=== PATIENT | male | born 1960 | race Caucasian/White ===

== ENCOUNTER → 2019-01-14 09:26 | Outpatient (CLI) | payer OTHER, SELFPAY ==
--- NOTE | 2019-01-14 09:32 | RAD_ITS ---
STUDY: X-RAY - PARANASAL SINUSES REASON FOR EXAM: Male, 58 years old. Head congestion, pressure TECHNIQUE: 3 view(s) of the paranasal sinuses were obtained. COMPARISON: None. FINDINGS: Normal visualized frontal, ethmoidal and sphenoid sinuses. Opacification of the left maxillary sinus, air-fluid level within the right maxillary sinus Normal visualized facial bones. The soft tissue structures are unremarkable. RAD/Sinuses min 3 Views IMPRESSION: Bilateral maxillary sinusitis Electronically Signed: Melquiades Felix MD at 8:53 EST , Service support ,
== END ==
PROVIDERS: Family Provider Family Medicine; PCP Family Medicine; Referring Provider Family Medicine; Visit Provider Family Medicine
DX: J32.0 Chronic maxillary sinusitis (principal)
CPT/HCPCS: 70220

== ENCOUNTER → 2019-01-25 16:57 | Outpatient (CLI) | payer OTHER, SELFPAY ==
[2019-01-25 17:36] LABS: Hematocrit 48.5 % (40-54); Hemoglobin 15.9 g/dL (13.0-16.5); Mean Corp Hgb Conc 32.8 g/dL (32-36); Mean Corpuscular Hgb 30.8 pg (27.0-32.0); Mean Platelet Vol. 9.3 fl (6.2-12.0); Platelet Count 187 K/mm3 (150-450); RBC Distribution Width CV 13.4 % (11.6-14.6); RBC Distribution Width SD 46.7 fl (35.1-43.9); Red Blood Count 5.16 M/mm3 (4.6-6.2); White Blood Count 5.9 K/mm3 (4.4-11.0)
[2019-01-25 18:04] LABS: Anion Gap 6 (5-15); BUN 26 mg/dL (7-18); BUN/Creat Ratio 18.8 RATIO (10-20); Calcium,Total 8.6 mg/dL (8.5-10.1); Chloride 106 mmol/L (98-107); Creatinine, Serum 1.38 mg/dL (0.70-1.30); EST Glomerular Filtration Rate 57 mL/min (>60); Est Glom Filt Rate - Afr Amer 68 mL/min (>60); Glucose 94 mg/dL (74-106); Potassium 4.3 mmol/L (3.5-5.1); Sodium Level 138 mmol/L (136-145)
== END ==
PROVIDERS: Family Provider Family Medicine; PCP Family Medicine; Referring Provider Family Medicine; Visit Provider Family Medicine
DX: Z01.818 Encounter for other preprocedural examination (principal)
CPT/HCPCS: 36415; 80048; 85027

== ENCOUNTER 2019-03-02 01:18 | Emergency (ER) | payer OTHER, SELFPAY ==
[2019-03-02 01:19] VITALS: BP 136/82; PULSE 92; RESP 18; TEMP 36.8; O2SAT 96; BMI 26.9
[2019-03-02 01:23] VITALS: BP 136/82; PULSE 92; RESP 18; TEMP 36.8; O2SAT 96
--- NOTE | 2019-03-02 01:48 | RAD_ITS ---
STUDY: X-RAY CHEST REASON FOR EXAM: Male, 58 years old. COUGH THAT JUST STARTED TONIGHT TECHNIQUE: PA and lateral views of the chest. COMPARISON: None. FINDINGS: There is minimal right lower lobe scarring versus atelectasis. Remainder of the lungs are clear and expanded. There is no demonstrated pleural abnormality. Normal size heart. Normal mediastinum and bernadette. Normal visualized pulmonary arteries. Normal visualized aortic arch and descending thoracic aorta. Normal visualized thoracic spine. Normal visualized ribs, clavicles, and shoulders. There is no demonstrated abnormality of the visualized soft tissue structures of the upper abdomen. RAD/Chest PA and Lateral IMPRESSION: Minimal right lower lobe scarring versus atelectasis, otherwise no acute cardiopulmonary disease. Electronically Signed: Olivia Vidal MD at 3:35 EST , Service support ,
--- NOTE | 2019-03-02 01:50 | ED.DCSUM_ITS ---
History of Present Illness Chief Complaint: Cold Sx Informant: Patient Onset: Days Associated Symptoms: Clear sputum, Cough, Post-nasal drainage. Negative for: Fever, Sore throat Chest Pain: None Narrative: Patient is a 58-year-old male with no significant past medical history presenting with cough. Patient states that at past 8 months he has been dealing with nasal congestion and has been on multiple courses of antibiotics and steroids. He is actually scheduled to see ENT tomorrow morning. Throughout this he is also had intermittent episodes of coughing. Tonight he had a particularly severe episode where he felt he could not catch his breath with all the coughing. He also felt like he was wheezing. He denies any history of tobacco use or COPD. He denies any associated fever, chills, myalgias, abdomin al pain, chest pain or sore throat. He notes intermittently he does have drainage in the back of his nose and his cough is sometimes worse at night. He denies any swelling of his extremities. Past Medical History - Allergies and Home Meds Allergies/Adverse Reactions: Allergies No Known Allergies Allergy (Verified 03/02/19 01:22) Primary Care Physician: Franco Beltrán MD [Primary Care Provider] - Past Medical History: None Surgical History: noncontributory Lives: Spouse/ Significant Other Smoking Status: Never smoker Review of Systems General: Denies: Chills, Fever, Sweats ENT: Reports: - - Nasal congestion?chronic. Denies: Bilateral ear pain, Rhinorrhea, Sore throat Cardiovascular: Denies: Chest pain, Palpitations Respiratory: Reports: Dyspnea, Cough, Sputum, - - Wheezing. Denies: Dyspnea on exertion Gastrointestinal: Denies: Abdominal pain, Nausea, Vomiting, Diarrhea, Melena, Hematochezia Genitourinary: Denies: Dysuria, Hematuria, Frequency Skin: Denies: Rash Neurological: Denies: Headache, Weakness, Numbness Physical Exam Vital Signs/Narrative: Vital Signs Temp Pulse Resp BP Pulse Ox 03/02/19 01:23 98.2 F 92 18 136/82 H 96 03/02/19 01:19 98.2 F 92 18 136/82 H 96 Inital Vital Signs reviewed: Yes General: Well nourished, Well developed Head: Normocephalic, Atraumatic Eyes: Perrl, EOMI ENT: No rhinorrhea, TM's clear, - - Patient is a very nasally voice. Mild erythema of the oropharynx, no edema or exudate present. Negative for: Rhinorrhea Neck: Supple, Nontender Cardiovascular: Regular rate, Regular rhythm, No murmurs Respiratory: No distress, No Stridor, Chest nontender, Wheezing - Mild, expiratory, bilateral upper lungs. Negative for: Diminished, Decreased Air Movement, Retractions Abdomen: Soft, Nontender, Nondistended, Normal bowel sounds Back: Nontender, Normal Inspection Extremities: Nontender, No edema Skin: Normal color, No rash Neurological: Alert, Oriented x3, Cranial nerves II-XII grossly intact, Normal Strength, Normal Sensation Psychological: Normal affect Diagnostic/Tx/Re-eval Chest X-Ray - ED: 2 View, Read by ED Physician, Read by Radiologist, No Acute Di sease Treatments: Albuterol - Medical Decision Making Patient is evaluated for coughing fits and wheezing. He otherwise is well- appearing. He is afebrile with normal vital signs. Patient does have wheezing on exam. He is given a DuoNeb and has improvement of his breathing as well as his wheezing. X-ray does not show any acute infiltrate or pneumothorax. Patient is following up tomorrow with ENT for his chronic congestion. Patient will be discharged home with an inhaler to use. Is possible he has some reactive airway with a cough variant. At this time I do not think further lab work is indicated. Patient does not have associated chest pain I do not think this is an ACS equivalent. I am not concerned for PE. Patient is counseled on signs and symptoms requiring return to the emergency room. Patient verbalizes agreement and understand this plan. Patient discharged home in stable and improved condition. ED Disposition - Plan for ED Patient: Disposition: Home or Assisted Living Diagnosis: Cough, Wheezing Instructions: BRONCHITIS with Wheezing (Adult) Referrals: Franco Beltrán MD [Primary Care Provider] - Additional Instructions: Use the inhaler 1 to 2 puffs every 4-6 hours as needed for coughing or wheezing. There is no signs of pneumonia on your chest x-ray. Is possible you have a viral infection that is causing the coughing and wheezing. Please follow-up with your ENT doctor as scheduled in the morning as well as your primary care doctor. Return to the emergency room with any worsening symptoms.
[2019-03-02 01:54] VITALS: PULSE 77; RESP 16
[2019-03-02] MEDS: Ipratropium/Albuterol Sulfate 3 ML AMPUL.NEB INHALATION (01:54)
[2019-03-02 02:22] VITALS: BP 135/80; PULSE 92; RESP 17; TEMP 37; O2SAT 97
[2019-03-02 04:05] VITALS: BP 140/80; PULSE 90; RESP 18; O2SAT 96
== END 2019-03-02 04:06 | disposition home or self-care (01) ==
PROVIDERS: Emergency Provider Emergency Medicine; PCP Family Medicine
DX: R06.2 Wheezing (principal); R05 Cough
CPT/HCPCS: 71046; 94640; 99282

== ENCOUNTER 2019-03-12 06:17 | Observation (INO) | payer OTHER, SELFPAY ==
[2019-03-12] VITALS (15 sets, daily range): BP systolic 102–142; BP diastolic 61–88; PULSE 78–108; RESP 11–24; TEMP 36.6–37.5; O2SAT 88–98; BMI 26.5; BMI 26.4
--- NOTE | 2019-03-12 06:24 | EKG12_ITS ---
Test Reason : Blood Pressure : / mmHG Vent. Rate : 107 BPM Atrial Rate : 107 BPM P-R Int : 120 ms QRS Dur : 080 ms QT Int : 340 ms P-R-T Axes : 071 -13 060 degrees QTc Int : 453 ms Sinus tachycardia Otherwise normal ECG Confirmed by SHARAN ACEVES, LIZET ([id number]), desk editor RAFA DUBON ([id number]) on 03/15/2019 8:27:57 AM Referred By: Marium Tinajero Confirmed By:LIZET TSANG MD
--- NOTE | 2019-03-12 06:24 | RAD_ITS ---
STUDY: X-RAY CHEST REASON FOR EXAM: Male, 58 years old patient with cough, congestion and shortness of breath. TECHNIQUE: Single AP portable view of the chest. COMPARISON: Chest radiograph dated March 02, 2019. FINDINGS: Cardiac monitoring leads are present. The lungs are clear and hyperexpanded. There is no demonstrated pleural abnormality. Normal size heart. The mediastinum has a normal appearance. The hilar areas are both prominent in appearance. There is prominence of the pulmonary hilar arteries without peripheral pulmonary vascular congestion. Normal visualized aortic arch and descending thoracic aorta. Normal visualized thoracic spine. Normal visualized ribs, clavicles, and shoulders. There is no demonstrated abnormality of the visualized soft tissue structures of the upper abdomen. RAD/Chest 1 View (Portable) IMPRESSION: Prominence of bilateral pulmonary arteries and/or hilar areas. Differential considerations include lymphadenopathy. Electronically Signed: Christina Chavez MD at 7:09 EST , Service support ,
[2019-03-12] MEDS: 0.9% Normal Saline 1,000 ML 999 ML IV (06:33)
[2019-03-12] MEDS: Ipratropium/Albuterol Sulfate 3 ML AMPUL.NEB INHALATION ×3 (06:33→19:08)
[2019-03-12] MEDS: MethylPREDNISolone 125 MG/2 ML Vial IV (06:33)
[2019-03-12 06:39] LABS: Absolute Lymphocyte Count 2.11 X10^3/uL (0.83-4.51); Absolute Neutrophil Count 2.9 X10^3/uL (2.0-7.7); Basophil# 0.05 X10^3/uL; Basophil% 0.9 % (0-1); Eosinophil# 0.01 X10^3/uL; Eosinophils% 0.2 % (0-5); Hematocrit 49.8 % (40-54); Hemoglobin 16.9 g/dL (13.0-16.5); Lymphocyte # 2.11 X10^3/ul (4.0); Lymphocyte % 37.7 % (19-41); Mean Corp Hgb Conc 33.9 g/dL (32-36); Mean Corpuscular Hgb 31.6 pg (27.0-32.0); Mean Corpuscular Volume 93.1 fL (80-94); Mean Platelet Vol. 8.8 fl (6.2-12.0); Monocyte# 0.47 X10^3/uL; Monocyte% 8.4 % (0-10); NRBC Flagged by Analyzer 0 % (0-5); Neutrophil # 2.93 X10^3/uL (2.7-7.7); Neutrophil % 52.3 % (47-70); Platelet Count 229 K/mm3 (150-450); RBC Distribution Width CV 13.2 % (11.6-14.6); RBC Distribution Width SD 45.7 fl (35.1-43.9); Red Blood Count 5.35 M/mm3 (4.6-6.2); White Blood Count 5.6 K/mm3 (4.4-11.0)
[2019-03-12 06:52] LABS: Anion Gap 6 (5-15); BUN 18 mg/dL (7-18); BUN/Creat Ratio 13.5 RATIO (10-20); Calcium,Total 8.9 mg/dL (8.5-10.1); Chloride 107 mmol/L (98-107); Creatinine, Serum 1.33 mg/dL (0.70-1.30); EST Glomerular Filtration Rate 59 mL/min (>60); Est Glom Filt Rate - Afr Amer 71 mL/min (>60); Estimated Creatinine Clearance 66.05 ml/min; Glucose 123 mg/dL (74-106); Potassium 4.1 mmol/L (3.5-5.1); Sodium Level 141 mmol/L (136-145)
[2019-03-12 07:10] LABS: D-Dimer Quantitative (DVT/PE) 0.94 FEU/ug/m (0.27-0.49)
--- NOTE | 2019-03-12 07:17 | CT_ITS ---
STUDY: CTA CHEST REASON FOR EXAM: Male, 58 years old. SOB, COUGH INTERMITTENT X 8 MONTHS, ELEV D DIMER RADIATION DOSAGE (If Supplied By Facility): CTDIvol = ( 10.63 ) mGy, DLP = ( 428.5 ) mGycm TECHNIQUE: The examination was performed with the intravenous administration of IV 100mL Isovue-370. Post-processing of the angiographic images was performed, with multiplanar reformation and 3D reconstruction. Individualized dose optimization techniques were used for this CT. COMPARISON: March 12, 2019 chest x-ray FINDINGS: Normal enhancement of the main pulmonary artery and right and left pulmonary arteries. Normal enhancement of the bilateral peripheral pulmonary arteries. There is no demonstrated pulmonary embolism. Normal thoracic aorta and visualized great vessels. There is no demonstrated aortic dissection. Normal heart and pericardium. A few nonspecific subcentimeter mediastinal some centimeter lymph nodes. There is visualized. Mild fairly symmetric bilateral lymphadenopathy in the bernadette. Normal visualized trachea there is a thickened appearance of several areas of the bronchi including peripheral peribronchial thickening. The lungs are well expanded. Within the right upper lobe there are multiple small well-circumscribed nodular densities. Within the left lower lobe there is a focus of groundglass opacity and mild peribronchial thickening. There are a few distal right mediolateral pulmonary nodular densities. This may represent some element of mucus plugging. There are a few scattered areas groundglass opacity air trapping. Normal pleura. Normal chest wall structures. There are degenerative changes of thoracic spine. There is a 2.1 cm cystic structure within the right hepatic lobe near the caudate. There is a peripheral low attenuating cystic structure measuring 7.3 mm. There is a small hiatal hernia. CT/CTA Chest W/WO Contrast IMPRESSION: The visualized pulmonary embolism. Findings are suspicious for atypical infiltrates. Peribronchial thickening inflammatory change a few scattered nodules. Scattered nodular densities with a cluster in the right upper lobe. Consider atypical infiltrates, rhonchi versus respiratory bronchiolitis in the appropriate clinical setting. If symptoms persist potentially follow-up high-resolution chest CT would be helpful. Incidental visualization of at least 2 cystic structures within the liver for which a follow-up ultrasound would be helpful to clarify. Electronically Signed: Lesli Clement MD at 8:47 EST Tel , Service support ,
--- NOTE | 2019-03-12 07:27 | ED.DCSUM_ITS ---
- ER Visit Summary Date of Service: 03/12/19 Chief Complaint: Shortness of breath History of Present Illness: The patient is a [address] Meadows. He reports that he has a cough that has been present since last week. He reports this really just an occasional cough. However, gets much worse at night when he lays down. Is productive of clear sputum without blood. He denies any fever or chills. Reports that he has severe shortness of breath at worst and moderate shortness of breath currently. Reports that it is worsened by coughing. It is minimally relieved by albuterol. Patient reports that he has substernal chest tightness that began approximately an hour ago. Is 3-10 in severity. He denies any fever or chills. No personal or family history of DVT. No recent travel. No ankle swelling or calf pain. Physical Examination: Vitals: 98.1, 142/88, 108, 19, 88% on room air which is hypoxic. General: Well-nourished and well-developed. Head: Normocephalic atraumatic. Neck: Supple, no lymphadenopathy. No JVD. Nontender. Cardiovascular: Tachycardic regular rhythm. No murmurs. Respiratory: Mild respiratory distress. Clear to auscultation bilaterally. Abdominal: Soft, nontender, nondistended, normal bowel sounds. No guarding, rebound, or peritoneal signs. Back: Nontender. Extremities: Nontender, no edema. Skin: Normal color, no rash. Neurologic: Alert and oriented ?3. Cranial nerves II through XII are intact. Normal strength and sensation. Psych: Normal affect. Test Results: EKG is sinus tach at [address] changes. CBC is marked for hemoglobin of 16.9. Chem-7's marked for creatinine 1.33 and glucose 123. Troponin is less than 0.015. D-dimer is positive. Lactic acid is 1.4. Clinical Impression(s) from Imaging Studies Chest X-Ray 03/12/19 06:24 IMPRESSION: Prominence of bilateral pulmonary arteries and/or hilar areas. Differential considerations include lymphadenopathy. Electronically Signed: Christina Chavez MD at 7:09 EST , Service support , Emergency Department Course and Treatment: Patient was given albuterol and Atrovent aerosols. He does report that he had some relief from this despite the fact that he was not wheezing and he has good air movement. He does not smoke. He was also given Solu-Medrol IV. However, on 4 L of O2 his pulse ox is still 92%. A CTA of the chest was ordered and is pending. Treatment Plan: Patient is going to require admission to the hospital. He will be discussed with the hospitalist and the CTA of the chest will be checked out to the incoming doctor. Disposition: Admitted in improved condition. Impression: 1. URI. 2. Hypoxia. This note was generated with [employer] software. It may contain incorrect words, spelling, and punctuation that were not noted in review of the chart prior to signing <Mauro Wells - Last Filed: 03/12/19 07:35> - ER Visit Summary Took over care of this patient. CT shows no pulmonary emboli, but atypical bilateral infiltrates were noted, this is likely causing his hypoxemia and symptoms. Given his hypoxemia, agree with admission. Dr. Tinajero aware. Impression: 1. Lower respiratory infection 2. Hypoxemia This note was generated with [employer] ([employer]) software. It may contain incorrect words, spelling, and punctuation that were not noted in review of the chart prior to signing <Juan Hodges - Last Filed: 03/12/19 10:10> ED Disposition <Mauro Wells - Last Filed: 03/12/19 07:35> <Juan Hodges - Last Filed: 03/12/19 10:10> - Plan for ED Patient: Disposition: Acute [employer] [employer]
[2019-03-12 07:28] LABS: Lactic Acid 1.4 mmol/L (0.4-1.9)
--- NOTE | 2019-03-12 08:55 | PCM.HP.STD ---
Problem List (1) Hypoxia Status: Acute (2) Atypical pneumonia Status: Acute (3) Renal insufficiency Status: Acute History of Present Illness Date of Admission: 03/12/19 Chief Complaint: Dyspnea, cough, hypoxia The patient is a 58 y/o M w/ no significant medical history aside ongoing history over the last several months of ongoing congestion, postnasal drip as well as minimally productive cough with PCP evaluations and several rounds of steroid tapers as well as antibiotic therapies, worsened over the last 4 weeks with no specific fevers or chills but some associated dyspnea, worse with exertion and ongoing mildly productive cough prompting eventual ED presentation. In the ED work-up included T 98.1, heart rate 92, BP 131/88, respiratory rate 12, initially noted to be 87 to 88% on room air while in the ED with improvement to 96% on 2 L nasal cannula, CBC with WBC 5.6, hemoglobin 16.9, platelet 229 without shift, d-dimer 0.94, BMP with BUN/creatinine 18/1.33 with no history of renal disease per discussion, glucose 123, lactic acid 1.4, troponin less than 0.015, chest x-ray with prominent bilateral pulmonary arteries and her hilar regions, follow-up CTPA with no visualized pulmonary emboli with findings suspicious for atypical infiltrates with peribronchial thickening inflammatory change and a few scattered nodules with scattered nodular densities clustered in the right upper lobe. In the ED patient administered normal saline, Solu-Medrol 125 mg IV x1, albuterol therapy. Given patient failed outpatient treatment occluding steroids and antibiotic therapy and noted hypoxia while in the ED admitted for further care and treatment. Past Medical History Allergies No Known Allergies Allergy (Verified 03/12/19 06:17) Home Medications: Ambulatory Orders Medication Instructions Recorded NK 03/02/19 Surgical History: noncontributory Psychiatric History: No pertinent psych hx Lives: Spouse/ Significant Other Smoking Status: Never smoker Tobacco Use: Non-smoker Alcohol: Occasional Drugs: None - *Family History Maternal History Items: Hypertension Paternal History Items: - - Patient notes father with a history of unclear blood disorder, associate with his but cannot give other information. Review of Systems Constitutional: Reports: Malaise, Weakness, Fatigue. Denies: Anorexia, Chills, Fever, Weight Change HEENT: Reports: Nasal Congestion, Sinus Congestion, Sinus Drainage. Denies: Head Aches Cardiovascular: Denies: Chest Pain, Chest Pressure, Chest Tightness, Light Headedness, Orthopnea, Palpitations, Syncope Respiratory: Reports: Cough, Shortness of Breath, Shortness of breath upon exertion, Sputum production - Very minimal sputum production.. Denies: Shortness of breath at rest, Wheezing Gastrointestinal: Denies: Abdominal Pain, Nausea, Vomiting Genitourinary: Denies: Dysuria Musculoskeletal: Denies: Joint Pain, Joint Tenderness Skin: Denies: Rash, Wounds Neurological: Denies: Numbness, Tingling, Focal weakness Psychiatric: Denies: Anxiety, Depression, Homicidal Ideations, Suicidal Ideations Hematologic/ Lymphatic: Denies: Easy Bruising, Easy Bleeding VTE Information - Inpt Only VTE Present on Admission: No VTE Mechan Device Prophylaxis: None VTE Pharm Prophylaxis ordered?: No Reason prophylaxis not ordered:: Treatment Not Indicated Patient Problems: Active and Suspected Problems Hypoxia (Acute) Atypical pneumonia (Acute) Renal insufficiency (Acute) Subjective: Seated upright in the medical surgical bed, fatigued appearance, currently transitioned to room air following interventions in the ED, no evidence of dyspnea. Objective: Physical Examination: General: awake, alert, oriented x 3 and cooperative, seated upright in the medical surgical bed, fatigued appearance but no acute distress, transition now to room air following ED interventions, no hypoxia currently. Skin: normal color, turgor, no icterus, cyanosis. HEENT: AT/NC, EOMI, PERRLA, minimally dry MM, no obvious boggy nares, does have nasal polyps with ongoing ENT evaluation, no carotid bruits or JVD present. Lungs: Diminished breath sounds, greater bilateral bases, moderate effort, no evidence of distress, no obvious rales, rhonchi or wheezing currently. Heart: Regular rate and rhythm; no gallop, rub audible. Abdomen: soft, NTTP, ND, normal BS, no HSM. Extremities: no cyanosis, clubbing, or edema. Neurological: patient awake, alert, oriented x 3; cognitive function intact; pupils equally reactive to light and accomodation; cranial nerves II-XII grossly normal, moving all 4 extremities, no focal deficits, strength mildly global decrease secondary to acute presentation and recent complaints. Psychiatric: affect appears mildly fatigued otherwise normal, no acute evidence of depressive or anxiety feelings. - Physical Exam Vitals/I&O's: Vital Signs Temp Pulse Resp BP Pulse Ox 98.1 F 92 12 131/88 H 96 03/12/19 07:57 03/12/19 07:57 03/12/19 07:57 03/12/19 07:57 03/12/19 07:57 Oxygen Flow Rate (L/min) 2 Oxygen Delivery Method Nasal Cannula Weight: 190 lb 4.143 oz Body Mass Index (BMI) 26.5 Laboratory Results 03/12/19 06:25: WBC 5.6, RBC 5.35, Hgb 16.9 H, Hct 49.8, MCV 93.1, MCH 31.6, MCHC 33.9, RDW Std Deviation 45.7 H, RDW Coeff of [place] 13.2, Plt Count 229, MPV 8.8, Immature Gran % (Auto) 0.500, Neut % (Auto) 52.3, Lymph % (Auto) 37.7, [place] % (Auto) 8.4, Eos % (Auto) 0.2, Baso % (Auto) 0.9, Absolute Neuts (auto) 2.9, Absolute Lymphs (auto) 2.11, Nucleated RBC % 0 03/12/19 06:25: Sodium 141, Potassium 4.1, Chloride 107, Carbon Dioxide 28.0, Anion Gap 6, BUN 18, Creatinine 1.33 H, Estim Creat Clear Calc 66.05, Est GFR (MDRD) Af Amer 71, Est GFR (MDRD) Non-Af 59 L, BUN/Creatinine Ratio 13.5, Glucose 123 H, Calcium 8.9, Troponin I < 0.015 03/12/19 06:25: D-Dimer Quant (PE/DVT) 0.94 H* 03/12/19 06:38: Lactic Acid 1.4 Assessment/Plan All Active Problems Hypoxia (Acute) Atypical pneumonia (Acute) Renal insufficiency (Acute) The patient is a 58 y/o M w/ no significant medical history aside ongoing history over the last several months of ongoing congestion, postnasal drip as well as minimally productive cough with PCP evaluations and several rounds of steroid tapers as well as antibiotic therapies, worsened over the last 4 weeks with no specific fevers or chills but some associated dyspnea, worse with exertion and ongoing mildly productive cough prompting eventual ED presentation. 1. Hypoxia with ? Atypical Pneumonia versus underlying Reactive Airway disease: Will admit to MS, maintain on oxygen with wean as tolerated to room air, continue ATC duonebs, PRN albuterol, maintained on IV Rocephin and Azithromycin, HOB, IS parameters w/ pending sputum cultures, respiratory viral panel, requested mycoplasma and chlamydia PCR for atypical assessment, urine antigens. A consider pulmonary evaluation to encourage quick transition to pulmonary office as likely will benefit from future pulmonary function testings. Patient notes already planned outpatient allergy testing to be initiated per ENT. 2. ? Chronic kidney disease stage III versus BOB versus renal insufficiency: Admission BUN/creatinine 18/1.33, unclear baseline, gently hydrating, repeat BMP in AM. 3. Hyperglycemia: Admission glucose 125, possibly stress response, also given recent steroids while in the ED, will repeat BMP in AM. 4. DVT prophylaxis: Low risk, encourage ambulation. Code Visit Inpatient E&M: 81250 Init Hosp L2
--- NOTE | 2019-03-12 10:32 | NURSING ---
uses reading glass.. cataracts done in both eyes right eye02/21/2019 and left eye 03/07/2019
[2019-03-12] MEDS: 0.9% Normal Saline 1,000 ML 125 ML IV ×2 (11:20→21:07)
[2019-03-12] MEDS: 0.9% Saline Lock 10 ML Syringe IV (11:27)
[2019-03-12] MEDS: Famotidine 20 MG Tablet PO (11:28)
[2019-03-13] VITALS (7 sets, daily range): BP systolic 118–124; BP diastolic 70–78; PULSE 66–88; RESP 16–18; TEMP 36.6–36.8; O2SAT 93–98
[2019-03-13] MEDS: BENZOCAINE/MENTHOL 1 LOZENGE MUCOUS MEM (01:04)
[2019-03-13] MEDS: Temazepam 15 MG Capsule PO (01:05)
[2019-03-13 06:49] LABS: Basophil# 0.03 X10^3/uL; Basophil% 0.3 % (0-1); Eosinophil# 0.01 X10^3/uL; Eosinophils% 0.1 % (0-5); Hematocrit 45.4 % (40-54); Hemoglobin 14.9 g/dL (13.0-16.5); Lymphocyte % 12.3 % (19-41); Mean Corp Hgb Conc 32.8 g/dL (32-36); Mean Corpuscular Hgb 30.8 pg (27.0-32.0); Mean Corpuscular Volume 93.8 fL (80-94); Mean Platelet Vol. 9.3 fl (6.2-12.0); Monocyte# 0.89 X10^3/uL; Monocyte% 7.8 % (0-10); NRBC Flagged by Analyzer 0 % (0-5); Neutrophil # 8.99 X10^3/uL (2.7-7.7); Neutrophil % 79.1 % (47-70); Platelet Count 199 K/mm3 (150-450); RBC Distribution Width CV 13.8 % (11.6-14.6); RBC Distribution Width SD 47.1 fl (35.1-43.9); Red Blood Count 4.84 M/mm3 (4.6-6.2); White Blood Count 11.4 K/mm3 (4.4-11.0)
[2019-03-13] MEDS: Ipratropium/Albuterol Sulfate 3 ML AMPUL.NEB INHALATION ×2 (07:00→11:10)
--- NOTE | 2019-03-13 07:20 | PCM.CONS.PUL ---
Reason for Consult Date of Consultation: 03/13/19 Reason for Consultation: Abnormal chest imaging History of Present Illness: The patient is a 58-year-old male, with a history as outlined below, who presented to the emergency department on March 12 with complaints of shortness of breath. The patient reports that beginning in the spring of last year, he began to experience chronic rhinorrhea, sinus drainage and postnasal drip. He has been treated a multitude of different times with different antimicrobials with only transient improvement in symptoms. Therefore, he was recently evaluated by Dr. Wyatt of ENT, who indicated to the patient that he had chronic sinusitis and nasal polyposis. He is currently scheduled to undergo a CT sinus on March 16. He is also being considered for surgery as well. The patient is a lifelong non-smoker, but did grow up in a smoking household. He was never diagnosed with asthma in childhood. He is currently employed working as a lawn and garden gas engine mechanic. The patient does currently keep 4 cats as pets in his home environment and also has chickens that he cares for on a daily basis. He reports no significant chest tightness or wheezing. He does report continued sinus drainage and postnasal drip symptoms. On presentation to the emergency department, the patient was noted to be afebrile and hemodynamically stable. He was initially documented to be 88% on room air. Laboratory evaluation revealed no evidence of a leukocytosis. Chemistry profile was elevated to 1.3. Lactate was within normal limits. A d-dimer was checked and found to be 0.94. Troponin was negative. Therefore, a CTA chest was obtained which revealed no evidence for pulmonary embolism. There were small nonspecific nodular densities along with peribronchial thickening. No focal infiltrate was present. The patient was initially treated with fluids, steroids and bronchodilators. He was admitted to the medical surgical floor for further management. Past Medical History Allergies No Known Allergies Allergy (Verified 03/12/19 06:17) Home Medications: Ambulatory Orders Medication Instructions Recorded NK 03/02/19 Surgical History: noncontributory Psychiatric History: No pertinent psych hx Lives: Spouse/ Significant Other Smoking Status: Never smoker Tobacco Use: Non-smoker Alcohol: Occasional Drugs: None - *Family History Maternal History Items: Hypertension Paternal History Items: - - Patient notes father with a history of unclear blood disorder, associate with his but cannot give other information. Review of Systems Constitutional: Denies: Chills, Fever Eyes: Denies: Blurred vision, Double vision HEENT: Denies: Head Aches, Sinus Congestion, Sinus Drainage Cardiovascular: Denies: Chest Tightness Respiratory: Reports: Cough, Shortness of Breath. Denies: Sputum production, Wheezing Gastrointestinal: Denies: Abdominal Pain, Nausea, Vomiting Genitourinary: Denies: Dysuria Musculoskeletal: Denies: Joint Pain, Joint Tenderness Skin: Denies: Rash, Wounds Neurological: Denies: Numbness, Tingling, Focal weakness Psychiatric: Denies: Anxiety, Depression, Homicidal Ideations, Suicidal Ideations Hematologic/ Lymphatic: Denies: Easy Bruising, Easy Bleeding Patient Problems: Active and Suspected Problems Hypoxia (Acute) Atypical pneumonia (Acute) Renal insufficiency (Acute) Objective: The patient's most recent lab work, culture data and imaging studies have all been personally reviewed. - Physical Exam Vitals/I&O's: Vital Signs Temp Pulse Resp BP Pulse Ox 97.8 F 88 18 124/78 H 94 03/13/19 01:30 03/13/19 01:30 03/13/19 01:30 03/13/19 01:30 03/13/19 01:30 Oxygen Flow Rate (L/min) 2 Oxygen Delivery Method Room Air Weight: 189 lb 6.033 oz Body Mass Index (BMI) 26.4 Intake and Output for Last 24 Hours 03/11/19 03/12/19 03/13/19 23:59 23:59 23:59 Intake Total 3852.91 / 3852.91 1000 / 1000 Balance 3852.91 / 3852.91 1000 / 1000 General: Alert, Oriented x3, Cooperative, No apparent distress HEENT: Atraumatic, PERRLA, Normocephalic Oral: No Gingival or Mucosal Lesions/ Ulcerations Neck: Supple, No Nodes, Trachea Midline Lungs: Normal air movement, No rhonchi, No wheeze, No rales Cardiovascular: Regular rate, Regular Rhythm, Normal S1, Normal S2 Abdomen: Bowel Sounds Present, Soft, Non Tender Extremities: No clubbing, No cyanosis, No edema Skin: No breakdown Musculoskeletal: No Tenderness to Palpation of Joints or Extremities, No Muscle Wasting Lymphatic: No Cervical, Supraclavicular, or Inguinal Adenopathy Neurological: Cranial nerves II-XII grossly intact, Neuro grossly intact Psych/Mental Status: Alert and oriented to time, place, person, mood and affect Labs (Last 48 Hours) 03/12/19 03/12/19 03/12/19 06:25 06:25 06:25 WBC 5.6 RBC 5.35 Hgb 16.9 H Hct 49.8 MCV 93.1 MCH 31.6 MCHC 33.9 RDW Std Deviation 45.7 H RDW Coeff of [place] 13.2 Plt Count 229 MPV 8.8 Immature Gran % (Auto) 0.500 Neut % (Auto) 52.3 Lymph % (Auto) 37.7 [place] % (Auto) 8.4 Eos % (Auto) 0.2 Baso % (Auto) 0.9 Absolute Neuts (auto) 2.9 Absolute Lymphs (auto) 2.11 Nucleated RBC % 0 D-Dimer Quant (PE/DVT) 0.94 H* Sodium 141 Potassium 4.1 Chloride 107 Carbon Dioxide 28.0 Anion Gap 6 BUN 18 Creatinine 1.33 H Estim Creat Clear Calc 66.05 Est GFR (MDRD) Af Amer 71 Est GFR (MDRD) Non-Af 59 L BUN/Creatinine Ratio 13.5 Glucose 123 H Lactic Acid Calcium 8.9 Total Bilirubin AST ALT Alkaline Phosphatase Troponin I < 0.015 Total Protein Albumin Mycoplasma pneumon IgG Mycoplasma pneumon IgM Miscellaneous Test 03/12/19 03/12/19 03/12/19 06:38 10:51 14:45 WBC RBC Hgb Hct MCV MCH MCHC RDW Std Deviation RDW Coeff of [place] Plt Count MPV Immature Gran % (Auto) Neut % (Auto) Lymph % (Auto) Pacific % (Auto) Eos % (Auto) Baso % (Auto) Absolute Neuts (auto) Absolute Lymphs (auto) Nucleated RBC % D-Dimer Quant (PE/DVT) Sodium Potassium Chloride Carbon Dioxide Anion Gap BUN Creatinine Estim Creat Clear Calc Est GFR (MDRD) Af Amer Est GFR (MDRD) Non-Af BUN/Creatinine Ratio Glucose Lactic Acid 1.4 Calcium Total Bilirubin AST ALT Alkaline Phosphatase Troponin I Total Protein Albumin Mycoplasma pneumon IgG Pending Mycoplasma pneumon IgM Pending Miscellaneous Test Pending 03/13/19 03/13/19 05:56 05:56 WBC 11.4 H RBC 4.84 Hgb 14.9 Hct 45.4 MCV 93.8 MCH 30.8 MCHC 32.8 RDW Std Deviation 47.1 H RDW Coeff of [place] 13.8 Plt Count 199 MPV 9.3 Immature Gran % (Auto) 0.400 Neut % (Auto) 79.1 H Lymph % (Auto) 12.3 L [place] % (Auto) 7.8 Eos % (Auto) 0.1 Baso % (Auto) 0.3 Absolute Neuts (auto) 9.0 H Absolute Lymphs (auto) 1.40 Nucleated RBC % 0 D-Dimer Quant (PE/DVT) Sodium Pending Potassium Pending Chloride Pending Carbon Dioxide Pending Anion Gap Pending BUN Pending Creatinine Pending Estim Creat Clear Calc Est GFR (MDRD) Af Amer Pending Est GFR (MDRD) Non-Af Pending BUN/Creatinine Ratio Pending Glucose Pending Lactic Acid Calcium Pending Total Bilirubin Pending AST Pending ALT Pending Alkaline Phosphatase Pending Troponin I Total Protein Pending Albumin Pending Mycoplasma pneumon IgG Mycoplasma pneumon IgM Miscellaneous Test Microbiology 03/12/19 10:45 Mucosa - Nasopharyngeal Respiratory Panel (PCR) - Final 03/12/19 11:50 Urine, Clean Catch Streptococcus pneumoniae Antigen (M - Final 03/12/19 11:50 Urine, Clean Catch Legionella Antigen - Final Clinical Impression(s) from Imaging Studies Chest X-Ray 03/12/19 06:24 IMPRESSION: Prominence of bilateral pulmonary arteries and/or hilar areas. Differential considerations include lymphadenopathy. Electronically Signed: Christina Chavez MD at 7:09 EST , Service support , Chest CTA 03/12/19 07:17 IMPRESSION: The visualized pulmonary embolism. Findings are suspicious for atypical infiltrates. Peribronchial thickening inflammatory change a few scattered nodules. Scattered nodular densities with a cluster in the right upper lobe. Consider atypical infiltrates, rhonchi versus respiratory bronchiolitis in the appropriate clinical setting. If symptoms persist potentially follow-up high-resolution chest CT would be helpful. Incidental visualization of at least 2 cystic structures within the liver for which a follow-up ultrasound would be helpful to clarify. Electronically Signed: Lesli Clement MD at 8:47 EST Tel , Service support , Current Medications Acetaminophen (Tylenol) 650 mg PO Q6H PRN PRN PRN Reason: Pain Score 1-3/Temp > 100.7 F Al Hydroxide/Mg Hydroxide (Mylanta Ii) 30 ml PO Q6H PRN PRN PRN Reason: Gastric Burning Albuterol Sulfate (Ventolin Aerosols) 2.5 mg INHALATION Q2H PRN PRN PRN Reason: Shortness of Breath/Wheezing Albuterol/Ipratropium (Duoneb) 3 ml INHALATION Q4HWA.RT [facility] Last Admin: 03/12/19 19:08 Dose: 3 ml Documented by: Famotidine (Pepcid) 20 mg PO BID [facility] Last Admin: 03/12/19 21:07 Dose: Not Given Documented by: Glucagon () 1 mg IM .X1 PRN PRN Reason: Hypoglycemia Guaifenesin (Robitussin) 20 ml PO Q4H PRN PRN PRN Reason: COUGH Hydralazine HCl (Apresoline Iv) 10 mg IV Q4H PRN PRN PRN Reason: SBP > 160 Azithromycin 500 mg/ Dextrose 255 mls @ 250 mls/hr IV Q24 [facility] Stop: 03/17/19 11:31 Last Infusion: 03/12/19 13:12 Dose: Infused Documented by: Ceftriaxone Sodium 2 gm/ (Sodium Chloride) 50 mls @ 100 mls/hr IV Q24 [facility] Stop: 03/19/19 11:01 Last Infusion: 03/12/19 11:54 Dose: Infused Documented by: Sodium Chloride () 250 mls @ 15 mls/hr IV .[id number] PRN PRN Reason: Saline Flush Sodium Chloride () 250 mls @ 15 mls/hr IV .[id number] PRN PRN Reason: Additional IVPB Infusion Dextrose (Dextrose 10%-Water) 250 mls @ 999 mls/hr IV .Q16M PRN; Protocol PRN Reason: HYPOGLYCEMIA Magnesium Hydroxide (Milk Of Magnesia) 30 ml PO DAILY PRN PRN PRN Reason: Constipation Morphine Sulfate () 2 mg IV Q3H PRN PRN PRN Reason: Pain Score 6-10/10 Ondansetron HCl (Zofran) 4 mg IV Q8H PRN PRN PRN Reason: NAUSEA/VOMITING Oxycodone HCl (Oxyir) 5 mg PO Q4H PRN PRN PRN Reason: Pain Score 4-5/10 Prochlorperazine Edisylate (Compazine Iv) 5 mg IV Q4H PRN PRN PRN Reason: Breakthrough nausea/vomiting Sodium Chloride () 10 - 40 ml IV UD PRN PRN Reason: SALINE FLUSH Last Admin: 03/12/19 11:27 Dose: 10 ml Documented by: Temazepam (Restoril) 15 mg PO QHS PRN PRN PRN Reason: INSOMNIA Last Admin: 03/13/19 01:05 Dose: 15 mg Documented by: Throat Lozenges (Cepacol Sore Throat Lozenge) 1 lozenge MUCOUS MEM Q2H PRN PRN PRN Reason: Sore throat or cough Last Admin: 03/13/19 01:04 Dose: 1 lozenge Documented by: Assessment/Plan All Active Problems Hypoxia (Acute) Atypical pneumonia (Acute) Renal insufficiency (Acute) RECOMMENDATIONS: 1. Perform walking oximetry study prior to consideration for discharge home. 2. Okay to discontinue antibiotics from my perspective. 3. Utilize intranasal steroid daily. 4. Outpatient CT sinus as scheduled. Follow-up with the ENT afterwards. 5. Outpatient pulmonary follow-up in 2 weeks. Will obtain PFTs and exhaled nitric oxide level. 6. Recommend allergy testing, if not completed by ENT. IMPRESSIONS: 1. Transient respiratory insufficiency/shortness of breath While the patient was initially admitted to the hospital with shortness of breath and transient respiratory insufficiency, this has improved. His CTA chest was largely unrevealing with small basilar nodular densities and peribronchial thickening. The patient's chronic symptoms appear to be secondary to sinus disease/nasal polyposis. He is currently being followed by ENT for the aforementioned issues. Given the findings on CTA chest, I cannot discount the possibility of potential small airways disease. Therefore, I would recommend that he follow-up in the pulmonary medicine clinic so that PFTs can be obtained. In addition, I would also plan to check an exhaled nitric oxide level and the patient and perform allergy testing, if not completed by ENT. 2. Chronic sinusitis/upper airway cough syndrome precipitated by postnasal drip The patient reports that he has a scheduled CT sinus on March 16 with follow-up with his ENT provider following. I will defer management to ENT accordingly. This note was generated with [employer] software. It may contain incorrect words, spelling, and punctuation that were not noted in checking the note before signing. Code Visit Inpatient E&M: 42199 Init Hosp L2
[2019-03-13 07:25] LABS: AST(SGOT) 25 U/L (15-37); Alanine Aminotransfer ALT/SGPT 32 U/L (16-61); Albumin, Serum 3.1 g/dL (3.2-5.0); Alkaline Phosphatase 54 U/L (45-117); Anion Gap 4 (5-15); BUN 17 mg/dL (7-18); BUN/Creat Ratio 13.9 RATIO (10-20); Calcium,Total 8.5 mg/dL (8.5-10.1); Chloride 113 mmol/L (98-107); Creatinine, Serum 1.22 mg/dL (0.70-1.30); EST Glomerular Filtration Rate 65 mL/min (>60); Est Glom Filt Rate - Afr Amer 79 mL/min (>60); Estimated Creatinine Clearance 72.01 ml/min; Globulin 3.2 g/dL (2.2-4.2); Glucose 103 mg/dL (74-106); Protein, Total 6.3 g/dL (6.4-8.2); Sodium Level 144 mmol/L (136-145)
--- NOTE | 2019-03-13 09:11 | DCINST_ITS ---
- Discharge Diagnoses Current Active Problems: Current Active and Chronic Problems 1. Transient Hypoxia with Abnormal CT Chest, Suspect secondary to Underlying Chronic Sinus Disease w/ nasal polyps w/ suspected allergic rhinitis and possible underlying Reactive Airway Disease 2. ? Chronic kidney disease stage II/III (Admission BUN/creatinine 18/1.33, unclear baseline, gently hydrated, repeat function Cr 1.22, suspect chronic component) 3. Hyperglycemia You will use the following diet at home:: Regular Your food should be the consistency of: Regular Your liquids should be the consistency of: Regular/Thin Discharge Activity: - - Advise only moderate activity until re-evaluation per ENT and Pulmonary medicine. May resume sexual activity in: No Restrictions Weight Bearing Status: Weight bearing as tolerated Call your doctor if you observe: Fever of 101 or Higher, Inability to urinate, Inability to have a bowel movement, Shortness of breath, Dizziness, Fainting spells, Chest pain, Uncontrolled pain Instructions: Understanding Nasal Allergies, Causes of Nasal Allergies, Nasal Allergies: Related Problems Additional Instructions: Currently we are suspicious for ongoing chronic sinusitis especially given nasal polyp history and recommend continued outpatient ENT evaluations with plan CT sinus in addition to allergy testing. Will then have you follow-up with pulmonary medicine to obtain pulmonary function testing to assess for reactive airway disease concurrently. Please continue to use the nasal steroid as recommended, scheduled specifically not only as needed and you may use the albuterol as needed for any shortness of breath complaints. If you have any concerns contact pulmonary medicine earlier for an earlier evaluation. Allergies/Adverse Reactions: Allergies No Known Allergies Allergy (Verified 03/12/19 06:17) Medications to take at Discharge Albuterol IH (ProAir) [Proair Hfa] 1 - 2 puff INHALATION Q4H PRN PRN #1 inhaler 03/13/19 Fluticasone 0.05% [Flonase Nasal [place]] 1 spray NASAL BID #1 bottle 03/13/19 Ketorolac Tromethamine [Acular LS] 1 drp 4X/DAY 03/13/19 Ofloxacin 0.3% [Floxin 0.3% Otic] 1 drp RIGHT EYE 4X/DAY 03/13/19 Prednisolone Acet 1% Eye Drop 1 drp RIGHT EYE 4X/DAY 03/13/19 The following prescriptions were given: Fluticasone 0.05% [Flonase Nasal [place]] 1 spray NASAL BID #1 bottle Transmission Status: Pending to [facility] Albuterol IH (ProAir) [Proair Hfa] 1 - 2 puff INHALATION Q4H PRN PRN #1 inhaler PRN Reason: dyspnea, wheezing Transmission Status: Pending to [facility] Primary Care Physician: Franco Beltrán MD [Primary Care Provider] - Please follow up with your Primary Care Physician in: Follow-up within 3-5 days. Test Results: Test results from this visit will be discussed in further detail at your follow- up appointment, if applicable. Please Follow Up With: Rahul Wyatt MD When: Follow-up as previously arranged. Please Follow Up With: Graciela Suh NP-C When: Follow-up in 2 weeks for pulmonary function testing and further assess ment. Proposed Discharge Date: 03/13/19
--- NOTE | 2019-03-13 09:19 | DS.PCM_ITS ---
Discharge Date and Diagnosis - Problem List Patient Problems: Active and Suspected Problems Hypoxia (Acute) Atypical pneumonia (Acute) Renal insufficiency (Acute) Date of Admission: 03/12/19 Date of Discharge: 03/13/19 - Primary Discharge Diagnosis Active and Suspected Problems 1. Transient Hypoxia with Abnormal CT Chest, Suspect secondary to Underlying Chronic Sinus Disease w/ nasal polyps w/ suspected allergic rhinitis and possible underlying Reactive Airway Disease 2. ? Chronic kidney disease stage II/III (Admission BUN/creatinine 18/1.33, unclear baseline, gently hydrated, repeat function Cr 1.22, suspect chronic component) 3. Hyperglycemia - Secondary Discharge Diagnosis 1. Underlying Chronic Sinus Disease w/ nasal polyps w/ suspected allergic rhinitis 2. ? Chronic kidney disease stage II/III Hospital Course and Treatment Dr. Patton Pulmonary medicine Operations: None Procedures: EKG Summary of Care Provided: The patient is a 58 y/o M w/ no significant medical history aside ongoing history over the last several months of ongoing congestion, postnasal drip as well as minimally productive cough with PCP evaluations and several rounds of steroid tapers as well as antibiotic therapies, worsened over the last 4 weeks with no specific fevers or chills but some associated dyspnea, worse with exertion and ongoing mildly productive cough prompting eventual ED presentation. In the ED work-up included T 98.1, heart rate 92, BP 131/88, respiratory rate 12, initially noted to be 87 to 88% on room air while in the ED with improvement to 96% on 2 L nasal cannula, CBC with WBC 5.6, hemoglobin 16.9, platelet 229 without shift, d-dimer 0.94, BMP with BUN/creatinine 18/1.33 with no history of renal disease per discussion, glucose 123, lactic acid 1.4, troponin less than 0.015, chest x-ray with prominent bilateral pulmonary arteries and her hilar regions, follow-up CTPA with no visualized pulmonary emboli with findings suspicious for atypical infiltrates with peribronchial thickening inflammatory change and a few scattered nodules with scattered nodular densities clustered in the right upper lobe. In the ED patient administered normal saline, Solu-Medrol 125 mg IV x1, albuterol therapy. Given patient failed outpatient treatment occluding steroids and antibiotic therapy and noted hypoxia while in the ED admitted for further care and treatment. Patient noted upcoming CT head and planned allergy testing initiated by ENT. The patient was admitted to OR, maintained on oxygen with wean as tolerated to room air quickly, continued ATC duonebs, PRN albuterol, maintained on IV Rocephin and Azithromycin pending further evaluation although afebrile, no marked WBC elevation or shift, HOB, IS parameters w/ negative respiratory viral panel, negative antigens, no sputum production during admission thus no sputum obtained, requested mycoplasma and chlamydia PCR for atypical assessment which were pending upon discharge but low suspicion. Pulmonary medicine consulted to assist w/ early transition to office with agreement that transient Hypoxia with abnormal CT Chest likely secondary to Underlying Chronic Sinus Disease w/ nasal polyps w/ suspected allergic rhinitis and possible underlying Reactive Airway Disease. Agreed with d/c abx therapy, continued flonase, PRN albuterol, planned continued CT head and allergy testing with follow-up with pulmonary in 2 weeks for PFTs and exhaled nitric oxide level. Also noted during admission, admission BUN/creatinine 18/1.33, unclear baseline, gently hydrated, repeat Cr 1.22, suspect mild underlying CKD with recommended continued outpatient PCP trending. Given clinical improvement, patient discharged to home in stable, improved condition. Given patient status, de-escalated to appropriate observation LOC prior. Patient discharged to home with follow-up with primary care physician within 3 to 5 days, continued follow- up with ENT as already arranged and as noted pulmonary acid in 2 weeks. DAY OF DISCHARGE PROGRESS NOTE: Subjective: Patient without acute event overnight per self and nursing report. Patient denies fever, chills, nausea, emesis, abdominal pain, chest pain or recurrent or worsened dyspnea. Discussed current presentation and less suspicious for pneumonia, likely underlying chronic sinus disease with possible allergic rhinitis and reactive airway disease therefore patient amenable to discontinuation of antibiotic therapy but strongly discussed continued routine appropriate usage of his nasal steroid and usage of PRN albuterol if necessary. Patient agreeable to discharge to home at this time. Patient will be discharged with follow-up with primary care physician within 3-5 days in addition to continue follow-up with ENT as well as pulmonary medicine in 2 weeks. Objective: T 97.8, heart rate 66, BP 124/70, respiratory rate 18, 98% on room air, oxygenation performed with noted 98% on room air at rest, 96% on room air with ambulation. Physical Examination: General: awake, alert, oriented x 3 and cooperative, seated upright in the bed, NAD. Skin: normal color, turgor, no icterus, cyanosis. HEENT: AT/NC, EOMI, PERRLA, MMM. Lungs: CTA bilaterally, moderate effort, moderately decreased BL bases, no rales, ronchi or wheezing; Heart: Regular rate and rhythm; no gallop, rub audible. Abdomen: soft, NTTP, ND, normal BS. Extremities: no cyanosis, clubbing, or edema. Neurological: patient awake, alert, oriented x 3; cognitive function appears intact upon questioning,; pupils equally reactive to light and accomodation; cranial nerves II-XII grossly normal, moving all 4 extremities, strength appropriate. Psychiatric: affect appears normal, no acute evidence of depressive or anxiety feelings. Assessment and Plan: Please see hospital summary above. Patient Problems: Active and Suspected Problems Hypoxia (Acute) Atypical pneumonia (Acute) Renal insufficiency (Acute) - Physical Exam Vitals/I&O's: Vital Signs Temp Pulse Resp BP Pulse Ox 97.8 F 66 18 124/70 H 98 03/13/19 08:09 03/13/19 08:09 03/13/19 08:09 03/13/19 08:09 03/13/19 08:09 Oxygen Flow Rate (L/min) 2 Oxygen Delivery Method Room Air Weight: 189 lb 6.033 oz Body Mass Index (BMI) 26.4 Intake and Output for Last 24 Hours 03/11/19 03/12/19 03/13/19 23:59 23:59 23:59 Intake Total 3852.91 / 3852.91 1000 / 1000 Balance 3852.91 / 3852.91 1000 / 1000 Microbiology Past 72 Hours 03/12/19 10:45 Mucosa - Nasopharyngeal Respiratory Panel (PCR) - Final 03/12/19 11:50 Urine, Clean Catch Streptococcus pneumoniae Antigen (M - Final 03/12/19 11:50 Urine, Clean Catch Legionella Antigen - Final Laboratory Results 03/12/19 10:51: Mycoplasma pneumon IgG Pending, Mycoplasma pneumon IgM Pending 03/12/19 14:45: Miscellaneous Test Pending 03/13/19 05:56: WBC 11.4 H, RBC 4.84, Hgb 14.9, Hct 45.4, MCV 93.8, MCH 30.8, MCHC 32.8, RDW Std Deviation 47.1 H, RDW Coeff of [place] 13.8, Plt Count 199, MPV 9.3, Immature Gran % (Auto) 0.400, Neut % (Auto) 79.1 H, Lymph % (Auto) 12.3 L, [place] % (Auto) 7.8, Eos % (Auto) 0.1, Baso % (Auto) 0.3, Absolute Neuts (auto) 9.0 H, Absolute Lymphs (auto) 1.40, Nucleated RBC % 0 03/13/19 05:56: Sodium 144, Potassium 4.0, Chloride 113 H, Carbon Dioxide 27.0, Anion Gap 4 L, BUN 17, Creatinine 1.22, Estim Creat Clear Calc 72.01, Est GFR (MDRD) Af Amer 79, Est GFR (MDRD) Non-Af 65, BUN/Creatinine Ratio 13.9, Glucose 103, Calcium 8.5, Total Bilirubin 0.30, AST 25, ALT 32, Alkaline Phosphatase 54, Total Protein 6.3 L, Albumin 3.1 L, Globulin 3.2, Albumin/Globulin Ratio 1.0 Current Medications Acetaminophen (Tylenol) 650 mg PO Q6H PRN PRN PRN Reason: Pain Score 1-3/Temp > 100.7 F Al Hydroxide/Mg Hydroxide (Mylanta Ii) 30 ml PO Q6H PRN PRN PRN Reason: Gastric Burning Albuterol Sulfate (Ventolin Aerosols) 2.5 mg INHALATION Q2H PRN PRN PRN Reason: Shortness of Breath/Wheezing Albuterol/Ipratropium (Duoneb) 3 ml INHALATION Q4HWA.RT [facility] Last Admin: 03/13/19 07:00 Dose: 3 ml Documented by: Famotidine (Pepcid) 20 mg PO BID [facility] Last Admin: 03/12/19 21:07 Dose: Not Given Documented by: Glucagon () 1 mg IM .X1 PRN PRN Reason: Hypoglycemia Guaifenesin (Robitussin) 20 ml PO Q4H PRN PRN PRN Reason: COUGH Hydralazine HCl (Apresoline Iv) 10 mg IV Q4H PRN PRN PRN Reason: SBP > 160 Azithromycin 500 mg/ Dextrose 255 mls @ 250 mls/hr IV Q24 [facility] Stop: 03/17/19 11:31 Last Infusion: 03/12/19 13:12 Dose: Infused Documented by: Ceftriaxone Sodium 2 gm/ (Sodium Chloride) 50 mls @ 100 mls/hr IV Q24 [facility] Stop: 03/19/19 11:01 Last Infusion: 03/12/19 11:54 Dose: Infused Documented by: Sodium Chloride () 250 mls @ 15 mls/hr IV .[id number] PRN PRN Reason: Saline Flush Sodium Chloride () 250 mls @ 15 mls/hr IV .[id number] PRN PRN Reason: Additional IVPB Infusion Dextrose (Dextrose 10%-Water) 250 mls @ 999 mls/hr IV .Q16M PRN; Protocol PRN Reason: HYPOGLYCEMIA Magnesium Hydroxide (Milk Of Magnesia) 30 ml PO DAILY PRN PRN PRN Reason: Constipation Morphine Sulfate () 2 mg IV Q3H PRN PRN PRN Reason: Pain Score 6-10/10 Ondansetron HCl (Zofran) 4 mg IV Q8H PRN PRN PRN Reason: NAUSEA/VOMITING Oxycodone HCl (Oxyir) 5 mg PO Q4H PRN PRN PRN Reason: Pain Score 4-5/10 Prochlorperazine Edisylate (Compazine Iv) 5 mg IV Q4H PRN PRN PRN Reason: Breakthrough nausea/vomiting Sodium Chloride () 10 - 40 ml IV UD PRN PRN Reason: SALINE FLUSH Last Admin: 03/12/19 11:27 Dose: 10 ml Documented by: Temazepam (Restoril) 15 mg PO QHS PRN PRN PRN Reason: INSOMNIA Last Admin: 03/13/19 01:05 Dose: 15 mg Documented by: Throat Lozenges (Cepacol Sore Throat Lozenge) 1 lozenge MUCOUS MEM Q2H PRN PRN PRN Reason: Sore throat or cough Last Admin: 03/13/19 01:04 Dose: 1 lozenge Documented by: Discharge Activity: - - Advise only moderate activity until re-evaluation per ENT and Pulmonary medicine. May resume sexual activity in: No Restrictions Weight Bearing Status: Weight bearing as tolerated Call your doctor if you observe: Fever of 101 or Higher, Inability to urinate, Inability to have a bowel movement, Shortness of breath, Dizziness, Fainting spells, Chest pain, Uncontrolled pain Home Medications: Medications to take at Discharge Albuterol IH (ProAir) [Proair Hfa] 1 - 2 puff INHALATION Q4H PRN PRN #1 inhaler 03/13/19 Fluticasone 0.05% [Flonase Nasal [place]] 1 spray NASAL BID #1 bottle 03/13/19 Ketorolac Tromethamine [Acular LS] 1 drp 4X/DAY 03/13/19 Ofloxacin 0.3% [Floxin 0.3% Otic] 1 drp RIGHT EYE 4X/DAY 03/13/19 Prednisolone Acet 1% Eye Drop 1 drp RIGHT EYE 4X/DAY 03/13/19 Following Prescrptions Were Given to Patient: Fluticasone 0.05% [Flonase Nasal [place]] 1 spray NASAL BID #1 bottle Transmission Status: Pending to [facility] Albuterol IH (ProAir) [Proair Hfa] 1 - 2 puff INHALATION Q4H PRN PRN #1 inhaler PRN Reason: dyspnea, wheezing Transmission Status: Pending to [facility] Primary Care Physician: Franco Beltrán MD [Primary Care Provider] - Please follow up with your Primary Care Physician in: Follow-up within 3-5 days. Please Follow Up With: Rahul Wyatt MD When: Follow-up as previously arranged. Please Follow Up With: Graciela Suh NP-C When: Follow-up in 2 weeks for pulmonary function testing and further assessment. Patient Instructions: Understanding Nasal Allergies, Causes of Nasal Allergies, Nasal Allergies: Related Problems Disposition: Home Minutes spent on discharge:: 35 Patient Condition:: Fair Medical Necessity - Tobacco Use Smoking Status: Never smoker Tobacco Use: Non-smoker Meaningful Use Info Meaningful Use Diagnoses (Choose all that apply): None applicable Code Visit OBSV E&M: 69879 Observation care discharge
[2019-03-13] MEDS: Famotidine 20 MG Tablet PO (10:23)
[2019-03-14 21:09] LABS: Mycoplasma Pneum AB IgG 546 U/mL (0-99); Mycoplasma pneum. AB IgM 862 U/mL (0-769)
== END 2019-03-13 12:00 | disposition home or self-care (01) ==
LOC: ED 07:21 → MS3 10:10
PROVIDERS: Admitting Provider Family Medicine; Emergency Provider Emergency Medicine; PCP Family Medicine; Referring Provider Family Medicine; Visit Provider Family Medicine
DX: R09.02 Hypoxemia (principal); N28.9 Disorder of kidney and ureter, unspecified; R73.9 Hyperglycemia, unspecified; J33.9 Nasal polyp, unspecified; J32.9 Chronic sinusitis, unspecified; N18.3 Chronic kidney disease, stage 3 (moderate)
CPT/HCPCS: 36415; 71045; 71275; 80048; 80053; 83605; 84484; 85025; 85379; 86738; 87449; 87633; 93005; 94640; 96361; 96365; 96366; 96367; 96375; 99218; 99285; J7030; Q9967; A4216; G0378; J0696

== ENCOUNTER → 2019-03-16 16:45 | Outpatient (CLI) | payer OTHER, SELFPAY ==
[2019-03-02 01:19] VITALS: BMI 26.9
[2019-03-12 10:25] VITALS: BMI 26.4
--- NOTE | 2019-03-16 16:48 | CT_ITS ---
STUDY: CT MAXILLOFACIAL SINUSES REASON FOR EXAM: Male, 58 years old. SINUSITIS, NASAL POLYPS RADIATION DOSAGE (If Supplied By Facility): CTDIvol = ( 33.06 ) mGy, DLP = ( 813.19 ) mGycm TECHNIQUE: The patient was scanned in a multi detector CT scanner. High resolution axial imaging was performed without the administration of intravenous contrast material. Sagittal and coronal images were reconstructed. Individualized dose optimization techniques were used for this CT. COMPARISON: X-ray January 14, 2019 FINDINGS: FRONTAL SINUSES: Complete opacification of the right frontal sinus with increased density regions. Moderate mucosal thickening of the left frontal sinus. Opacification of the frontal recesses. ETHMOIDAL SINUSES: Moderate ethmoid opacification with increased density regions. There is rarefaction of the osseous structures. MAXILLARY SINUSES: Moderate mucosal thickening with increased density regions SPHENOIDAL SINUSES: Moderate mucosal thickening. There is opacification of the bilateral ostiomeatal units Mucosal hypertrophy of the bilateral middle turbinates with adjacent soft tissue densities and possible polyps. There is hypertrophy of the bilateral inferior nasal turbinates. There is a right sided nasal septal deviation, but without a nasal septal spur. There is narrowing of the bilateral nasal airways. The visualized osseous structures are normal. The visualized bilateral orbital contents are normal. CT/Sinus/Facial Bone IMPRESSION: Pansinusitis. Increased density regions suggesting chronic fungal infection. Rarefaction of the osseous structures consistent with sinonasal polyposis. Opacification of the ostiomeatal units. Nasal septal deviation. Mucosal hypertrophy of the turbinates narrowing the nasal air passageway. Electronically Signed: Juan Levi MD at 20:06 EST , Service support ,
== END ==
LOC: CT 16:46
PROVIDERS: PCP Family Medicine; Referring Provider Otolaryngology; Visit Provider Otolaryngology
DX: J33.9 Nasal polyp, unspecified (principal); J32.9 Chronic sinusitis, unspecified
CPT/HCPCS: 70486

== ENCOUNTER 2019-03-19 20:43 | Emergency (ER) | payer OTHER, SELFPAY ==
[2019-03-12 10:25] VITALS: BMI 26.4
[2019-03-19] VITALS (8 sets, daily range): BP systolic 98–136; BP diastolic 62–80; PULSE 109–117; RESP 9–23; TEMP 36.5–36.8; O2SAT 50–97; BMI 26.5
--- NOTE | 2019-03-19 21:33 | RAD_ITS ---
HISTORY: INCREASING SHORTNESS OF BREATH EXAM: XR Chest 1 View: COMPARISON: March 12, 2019 FINDINGS: # of images incl. paperwork: 1 Lungs are clear. Heart is not enlarged. No acute osseous pathology perceived. Pulmonary vascularity is distinct. No effusions. RAD/Chest 1 View (Portable) IMPRESSION: Normal. at 2229 Reported and signed by: Josr Mayorga MD Electronically Signed: Josr Mayorga MD at 22:28 EST Tel , Service support ,
--- NOTE | 2019-03-19 21:40 | ED.RN ---
Updated MDs on pts condition around 2129, pending orders.
--- NOTE | 2019-03-19 22:02 | EKG12_ITS ---
Test Reason : SOB Blood Pressure : / mmHG Vent. Rate : 115 BPM Atrial Rate : 115 BPM P-R Int : 124 ms QRS Dur : 076 ms QT Int : 336 ms P-R-T Axes : 067 068 038 degrees QTc Int : 464 ms Sinus tachycardia Otherwise normal ECG Confirmed by JONNA ACEVES, DEBORAH ([id number]), pictures editor RENATO MENDES ([id number]) on 03/24/2019 2:56:08 PM Referred By: MELANIE/ENRIQUE Confirmed By:GIGI COYLE MD
[2019-03-19 22:21] LABS: Absolute Lymphocyte Count 2.08 X10^3/uL (0.83-4.51); Absolute Neutrophil Count 4.2 X10^3/uL (2.0-7.7); Basophil# 0.02 X10^3/uL; Basophil% 0.3 % (0-1); Eosinophil# 0.73 X10^3/uL; Eosinophils% 9.7 % (0-5); Hematocrit 51.2 % (40-54); Hemoglobin 16.9 g/dL (13.0-16.5); Lymphocyte # 2.08 X10^3/ul (4.0); Lymphocyte % 27.8 % (19-41); Mean Corpuscular Hgb 30.9 pg (27.0-32.0); Mean Corpuscular Volume 93.6 fL (80-94); Mean Platelet Vol. 9.5 fl (6.2-12.0); Monocyte# 0.46 X10^3/uL; Monocyte% 6.1 % (0-10); NRBC Flagged by Analyzer 0 % (0-5); Neutrophil # 4.17 X10^3/uL (2.7-7.7); Neutrophil % 55.7 % (47-70); Platelet Count 216 K/mm3 (150-450); RBC Distribution Width CV 13.5 % (11.6-14.6); RBC Distribution Width SD 46.7 fl (35.1-43.9); Red Blood Count 5.47 M/mm3 (4.6-6.2); White Blood Count 7.5 K/mm3 (4.4-11.0)
[2019-03-19] MEDS: Albuterol 2.5 MG/3 ML VIAL.NEB. INHALATION (22:22)
[2019-03-19] MEDS: Ipratropium/Albuterol Sulfate 3 ML AMPUL.NEB INHALATION (22:22)
[2019-03-19 22:31] LABS: Anion Gap 4 (5-15); BUN 24 mg/dL (7-18); BUN/Creat Ratio 17.6 RATIO (10-20); Calcium,Total 8.5 mg/dL (8.5-10.1); Chloride 108 mmol/L (98-107); Creatinine, Serum 1.36 mg/dL (0.70-1.30); EST Glomerular Filtration Rate 58 mL/min (>60); Est Glom Filt Rate - Afr Amer 70 mL/min (>60); Glucose 143 mg/dL (74-106); Potassium 4.2 mmol/L (3.5-5.1); Sodium Level 140 mmol/L (136-145)
[2019-03-19] MEDS: 0.9% Normal Saline 1,000 ML 999 ML IV (22:31)
--- NOTE | 2019-03-20 00:04 | ED.DCSUM_ITS ---
History of Present Illness Chief Complaint: Shortness of Breath Informant: Patient Onset: Today Associated Symptoms: Cough Narrative: Patient is a 58-year-old male presenting with sudden onset of shortness of breath. Patient is he was at home when he suddenly felt that he could not breathe and was coughing. He called 911 instructed the emergency room. Prior to arrival patient did try taking his albuterol inhaler with no relief. Patient notes he has had 2 other episodes like this in the past few weeks. The first time he was seen and evaluated the emergency room and discharged home. The second time he had persistent hypoxia and was admitted to the hospital. Patient was thought to have allergic rhinitis which was causing these episodes. Patient has this ongoing issue with sinusitis and nasal polyps for the past 6 to 9 months. He was evaluated by ENT as well as pulmonology. Patient was started on albuterol as well as fluticasone at that time. Patient is scheduled to have outpatient allergy testing on , 5 days from now. He has a follow-up with pulmonology in a week and a half. Patient does have some chest tightness on his right side which denies any other complaints. Patient had a negative PE study performed last week for the same symptoms. He states he has not had episode since he was discharged home until tonight. He denies any swelling of his legs. He denies any other complaints at this time. Past Medical History - Allergies and Home Meds Allergies/Adverse Reactions: Allergies No Known Allergies Allergy (Verified 03/19/19 20:59) Primary Care Physician: Franco Beltrán MD [Primary Care Provider] - Past Medical History: - - Nasal polyps Surgical History: noncontributory Smoking Status: Never smoker - Family History Maternal Family History: Reports: Hypertension Paternal Family History: Reports: - - Patient notes father with a history of unclear blood disorder, associate with his but cannot give other information. Review of Systems General: Denies: Chills, Fever, Sweats Eyes: Denies: Visual changes - bilaterally, Diplopia ENT: Denies: Rhinorrhea, Sore throat Cardiovascular: Reports: Chest pain. Denies: Palpitations Respiratory: Reports: Dyspnea, Cough. Denies: Dyspnea on exertion Gastrointestinal: Denies: Abdominal pain, Nausea, Vomiting, Diarrhea, Melena, Hematochezia Genitourinary: Denies: Dysuria, Hematuria, Frequency Musculoskeletal: Denies: Back pain, Extremity Pain Skin: Denies: Rash, Wounds Neurological: Denies: Headache, Weakness, Numbness Physical Exam Vital Signs/Narrative: Vital Signs Temp Pulse Resp BP Pulse Ox 03/19/19 23:30 98.3 F 109 H 10 L 113/79 95 03/19/19 22:57 94 03/19/19 22:22 109 H 14 03/19/19 22:04 97.7 F L 110 H 9 L 98/62 97 03/19/19 21:39 12 95 03/19/19 21:29 97.7 F L 112 H 12 136/67 H 93 03/19/19 20:44 97.7 F L 114 H 23 H 122/80 H 84 Inital Vital Signs reviewed: Yes General: Well nourished, Well developed, No Acute Distress Head: Normocephalic, Atraumatic Eyes: Perrl, EOMI ENT: Moist mucous membranes, No rhinorrhea, TM's clear, Nasal congestion Neck: Supple, Nontender, No JVD Cardiovascular: Regular rate, Regular rhythm, No murmurs Respiratory: No distress, Chest nontender, Diminished - Right-sided. Negative for: Rhonchi, Wheezing, Chest tenderness Abdomen: Soft, Nontender, Nondistended, Normal bowel sounds Back: Nontender, Normal Inspection Extremities: Nontender, No edema Skin: Normal color, No rash Neurological: Alert, Oriented x3, Cranial nerves II-XII grossly intact, Normal Strength, Normal Sensation Psychological: Normal affect, Normal Mood Diagnostic/Tx/Re-eval Chest X-Ray - ED: 2 View, Read by ED Physician, Read by Radiologist, No Acute Disease Clinical Impression(s) from Imaging Studies Chest X-Ray 03/19/19 21:33 IMPRESSION: Normal. at 2229 Reported and signed by: Josr Mayorga MD Electronically Signed: Josr Mayorga MD at 22:28 EST Tel , Service support , Laboratory Data 03/19/19 03/19/19 21:03 21:03 WBC 7.5 RBC 5.47 Hgb 16.9 H Hct 51.2 MCV 93.6 MCH 30.9 MCHC 33.0 RDW Std Deviation 46.7 H RDW Coeff of [place] 13.5 Plt Count 216 MPV 9.5 Immature Gran % (Auto) 0.400 Neut % (Auto) 55.7 Lymph % (Auto) 27.8 [place] % (Auto) 6.1 Eos % (Auto) 9.7 H Baso % (Auto) 0.3 Absolute Neuts (auto) 4.2 Absolute Lymphs (auto) 2.08 Nucleated RBC % 0 Sodium 140 Potassium 4.2 Chloride 108 H Carbon Dioxide 28.0 Anion Gap 4 L BUN 24 H Creatinine 1.36 H Estim Creat Clear Calc 64.60 Est GFR (MDRD) Af Amer 70 Est GFR (MDRD) Non-Af 58 L BUN/Creatinine Ratio 17.6 Glucose 143 H Calcium 8.5 Troponin I < 0.015 - Rhythm Strip Rhythm Strip: Sinus Tach Rate: 115 Ectopy: None - EKG Initial EKG Interpretation: Sinus Tachycardia, - - Sinus tachycardia at a rate of 115Normal intervalsNormal axisNormal ST segments Treatment - Dyspnea: Oxygen, Albuterol, Atrovent - Medical Decision Making Patient is evaluated for an episode of coughing, chest discomfort and hypoxia. Patient's discomfort is in his right lower chest. Patient does have decreased breath sounds on the right side. He said to previous episodes like this that we have seen in the ER he was admitted the last time. Patient had a pretty thorough pulmonology work-up and evaluation including a CTA. This was last week. He has no change from his prior presentation. Throughout his ED stay patient's O2 demands are titrated back to room air. He is ambulated does not go below 93%. He is tachycardic however he did receive albuterol in the emergency room and had some prior to arrival. Work-up is largely negative including a chest x-ray, CBC, BMP and troponin. Patient does feel that he has improvement with aerosols. I did touch discussed the case with pulmonology on-call, Dr. Banegas and discussed his history. At this time is most likely that his symptoms are from mucus plugging. This is consistent as patient did have some decreased breath sounds on the right side that improved when his O2 demands also improved. He recommended starting the patient on Acapella device. This is given to patient and he is instructed on by respiratory therapy. Patient will continue to follow-up with pulmonology and ENT outpatient. The symptoms not sound like ACS and I do not think further serial troponins and telemetry monitoring is indicated. Patient is counseled on signs and symptoms requiring return to the emergency room. Patient verbalizes agreement and understand this plan. Patient discharged home in stable and improved condition. ED Disposition - Plan for ED Patient: Disposition: Home or Assisted Living Diagnosis: Hypoxia Instructions: ED Dyspnea Referrals: Franco Beltrán MD [Primary Care Provider] - Additional Instructions: Use the Acapella device as instructed by respiratory therapy. Continue to follow-up with pulmonology and ENT as scheduled. Your work-up was largely normal today. I am not sure exactly what is causing these episodes of hypoxia besides the previously presumed sinus issues. Return the emergency room if you have worsening symptoms.
== END 2019-03-20 00:19 | disposition home or self-care (01) ==
PROVIDERS: Emergency Provider Emergency Medicine; PCP Family Medicine
DX: R09.02 Hypoxemia (principal); R07.89 Other chest pain; J33.9 Nasal polyp, unspecified
CPT/HCPCS: 71045; 80048; 84484; 85025; 93005; 94640; 94667; 94760; 96360; 96361; 99285; J7030; A4216

== ENCOUNTER → 2019-03-24 11:03 | Outpatient (CLI) | payer OTHER, SELFPAY ==
[2019-03-24 10:08] VITALS: BMI 26.5
[2019-03-27 06:37] LABS: Alternaria alternata <0.10 kU/L (Class 0); Bermuda Grass <0.10 kU/L (Class 0); Bluegrass, Kentucky <0.10 kU/L (Class 0); Cat Hair/Dander, Standard <0.10 kU/L (Class 0); D farinae Mite <0.10 kU/L (Class 0); D pteronyssinus <0.10 kU/L (Class 0); Dog Epithelia <0.10 kU/L (Class 0); Elm, American White <0.10 kU/L (Class 0); Oak, White <0.10 kU/L (Class 0); Plantain, English <0.10 kU/L (Class 0); Ragweed, Short/Common <0.10 kU/L (Class 0)
[2019-03-27 12:41] LABS: Mouse Urine <0.10 kU/L (Class 0)
[2019-03-27 14:06] LABS: Aspirgillus flavus Negative (Neg:<1:1); Aspirgillus fumigatus Negative (Neg:<1:1); Aspirgillus niger Negative (Neg:<1:1); Cytoplasmic Ab (C-ANCA) <1:20 titer (Neg:<1:20)
[2019-03-28 11:54] LABS: Immunoglobulin E 28 IU/mL (6-495); Perinuclear Ab (P-ANCA) <1:20 titer (Neg:<1:20)
== END ==
PROVIDERS: PCP Family Medicine; Referring Provider Nurse Practitioner Acute Care; Visit Provider Nurse Practitioner Acute Care
DX: J45.909 Unspecified asthma, uncomplicated (principal)
CPT/HCPCS: 36415; 82785; 86003; 86256; 86606

== ENCOUNTER 2019-04-11 10:11 | Day surgery (SDC) | payer OTHER, SELFPAY ==
[2019-03-24 10:08] VITALS: BMI 26.5
[2019-04-11] VITALS (7 sets, daily range): BP systolic 113–153; BP diastolic 86–109; PULSE 62–77; RESP 16–18; TEMP 36.6–37.3; O2SAT 98–100; BMI 25.7
[2019-04-11] MEDS: Lactated Ringers 1,000 ML 100 ML IV (10:55)
--- NOTE | 2019-04-11 11:40 | ETH_PTH ---
PATIENT: YING ARANDA II [place] [facility] [place][id number] AGE/SX: 58/M ROOM: RE04/11/[address]: Dr. Rahul Wyatt MD : [id number] BED: DIS: 04/11/2019 SPEC #: [id number] RECD: 04/11/19 14:18 STATUS: KENIA LIGIA #: [id number] DEVEN: 04/11/19 11:[address]: Rahul Wyatt DEPT: SURGICAL PATHOLOGY RECD BY: Oscar Ortiz ENTERED: 04/12/19 08:13 SP TYPE: ETH TISS OTHR DR: Dr. Sotero Beltrán MD Tissues: A - Ethmoid sinus, NOS B - Ethmoid sinus, NOS Procedures: Decalcification bone/plaque Surgery Specimen Level IV HEADER OPERATION: Endoscopic intranasal bilateral ethmoidectomy PRE-OP DIAGNOSIS: Chronic sinusitis and nasal polyposis TISSUE SUBMITTED: A - Right ethmoid and maxillary sinus contents, B - Left ethmoid and maxillary sinus contents MICROSCOPIC DIAGNOSIS A. Right ethmoid and maxillary sinus contents: Fragments of respiratory mucosa with chronic inflammation and bone. B. Left ethmoid and maxillary sinus contents: Fragments of respiratory mucosa with chronic inflammation and bone. MIKO:rabia 04/15/19 MICROSCOPIC DESCRIPTION Slides are reviewed. GROSS DESCRIPTION A - Received in fixative is one container labeled with the patient's name and designated right ethmoid and maxillary sinus contents. The specimen consists of multiple irregular fragments of cabral-pink soft tissue mixed with possible fragment of bone that in aggregate measure 5 x 3 x 0.2 cm. The entire specimen is submitted in two cassettes after decalcification. B - Received in fixative is one container labeled with the patient's name and designated left ethmoid and maxillary sinus contents. The specimen consists of multiple irregular fragments of cabral-pink soft tissue mixed with possible fragment of bone that in aggregate measure 5 x 3 x 0.2 cm. The entire specimen is submitted in two cassettes after decalcification. / MIKO:rabia 04/12/19 TC:3 CPT: 73836 x2, 91691 x2
--- NOTE | 2019-04-11 12:16 | DCINST_ITS ---
You will use the following diet at home:: Regular Discharge Activity: - - No noseblowing Additional Activity Instructions:: Start irrigation (4x/day) on 04/12/19. Start antibiotics tonight. Allergies/Adverse Reactions: Allergies No Known Allergies Allergy (Verified 04/11/19 10:37) Medications to take at Discharge Albuterol IH (ProAir) [Proair Hfa] 1 - 2 puff INHALATION Q4H PRN PRN #1 inhaler 03/13/19 montelukast 10 mg tablet 10 mg PO QPM #30 tab 03/24/19 fluticasone 500 mcg-salmeterol 50 mcg/dose blistr powdr for inhalation 1 inh INHALATION BID #60 ea 04/05/19 Cetirizine HCl [Zyrtec] 10 mg PO DAILY 04/06/19 Triamcinolone Acetonide [Nasacort] 1 spray NS DAILY 04/06/19 Primary Care Physician: Franco Beltrán MD [Primary Care Provider] - Test Results: Test results from this visit will be discussed in further detail at your follow- up appointment, if applicable.
[2019-04-11] MEDS: Oxymetazoline 0.05% 1 SPRAY SPRAY.BTL 15 SPRAY (12:48)
[2019-04-11] MEDS: Oxymetazoline 0.05% 1 SPRAY SPRAY.BTL NASAL (13:00)
--- NOTE | 2019-04-11 13:17 | PCM.OPRPT ---
Report of Operation Date of Procedure: 04/11/19 Pre-Operative Diagnosis: chronic sinusitis Post-Operative Diagnosis: same Surgery/Procedure Performed:: Bilateral total ethmoidectomy. right sphenoidectomy. right maxillary antrostomy. left maxillary antrostomy with tissue removal. use of navigation Type of Anesthesia:: General Anesthesiologist: Jovanny Estrada Specimen's removed: right and left sinus contents Estimated Blood Loss (mL): minimal Description of Procedure: The patient was taken to the operating room on 04/11/2019.. The patient was placed in the supine position on the operating table. The patient was given sufficient general endotracheal anesthesia. The head of bed was elevated 30 degrees. The navigation system was placed and verified per protocol and found to be accurate. 0 and 30 degrees rigid nasal endoscopes were used throughout the entire case. The middle turbinate uncinate process and polyps were injected with 1% lidocaine with epinephrine bilaterally. The right middle turbinate was medialized with a [place] elevator. Polyp was removed from the middle meatus using a sinus shaver. A ball-tipped sinus seeker was placed into the patient's maxillary sinus. The uncinate process was taken down using a microdebrider. Next, the ethmoid bulla was opened with a small curette. Anterior and posterior ethmoidectomy were then carried out using curette, sinus shaver and 45 degree Blakesley Adolfo forceps. Ethmoid cells were verified for relation to the skull base and orbit prior to being entered with the navigation system. The front face of the sphenoid was opened with a suction. Florencio-Cut forceps were then used to widen the opening. I then placed Afrin pledgets into the sinonasal cavity. Next attention was turned to the left side. The middle turbinate was medialized with a [place] elevator. A large polyp was removed from the middle meatus using a sinus shaver. The uncinate process was taken down using a sinus shaver. Using a back biter, the maxillary antrostomy was created. Tissue was removed from the maxillary sinus using a microdebrider with a 30 degree rigid nasal endoscope for visualization. I irrigated the maxillary sinus and the irrigant was suctioned from the nasopharynx. The ethmoid bulla was opened with a small curette. Anterior posterior ethmoidectomy were then carried out using a sinus shaver curette and Blakesley Adolfo forceps. Ethmoid cells were verified for relation to the skull base and orbit prior to being entered with the navigation system. Hemostasis was then achieved using Afrin pledgets. The pledgets were then removed bilaterally and Allen powder was applied bilaterally for absolute hemostasis. The procedure was then terminated. The patient was then awoken and brought to the recovery room in stable condition blood loss less than 30 cc replacement none. Sponge, needle, instrument count were correct at the end of the procedure.
[2019-04-11] MEDS: HYDROcodone Bitartrate/Apap 5/325 Tablet PO (14:46)
== END 2019-04-11 15:23 | disposition home or self-care (01) ==
LOC: SDC 10:12 → AC 10:14
PROVIDERS: PCP Family Medicine; Referring Provider Otolaryngology; Visit Provider Otolaryngology
PROC: (CPT 31257; principal; 2019-04-11 11:10)
DX: J32.8 Other chronic sinusitis (principal); J45.909 Unspecified asthma, uncomplicated
CPT/HCPCS: 00160; 31257; 31267; 88305; 88311; J7120; J2405

== ENCOUNTER → 2019-12-30 15:51 | Outpatient (CLI) | payer OTHER, SELFPAY ==
[2019-12-21 06:23] VITALS: BMI 26.6
--- NOTE | 2019-12-30 12:04 | COLBX_PTH ---
PATIENT: YING ARANDA II LOC: [facility] U#:[id number] AGE/SX: 64/M ROOM: RE12/30/[address]: Dr. Augusto Perdomo MD : 1960 BED: DIS: SPEC #: [id number] RECD: 12/30/19 15:23 STATUS: KENIA EVANSMonalisa #: [id number] DEVEN: 12/30/19 12:[address]: Augusto Perdomo DEPT: SURGICAL PATHOLOGY RECD BY: Sylvie Velazquez ENTERED: 01/02/20 07:25 SP TYPE: COLON BX OTHR DR: Dr. Sotero Beltrán MD [facility] Tissues: Cecum, NOS Procedures: Surgery Specimen Level IV HEADER OPERATION: Colonoscopy with biopsies PRE-OP DIAGNOSIS: History polyps TISSUE SUBMITTED: Ileocecal valve polyp, rule out adenoma MICROSCOPIC DIAGNOSIS Ileocecal valve polyp, biopsy: Polypoid fragments of benign colonic mucosa. See comment. AM:rabia 01/03/20 COMMENT Neither hyperplastic nor adenomatous change is identified. Clinical correlation is suggested. MICROSCOPIC DESCRIPTION Slides are reviewed. GROSS DESCRIPTION Received in fixative is one container labeled with the patient's name and designated ileocecal valve polyp. The specimen consists of two irregular fragments of light cabral soft tissue that in aggregate measure 0.6 x 0.2 x 0.1 cm. The specimen is totally submitted in one cassette. / AM:rabia 01/02/20 TC:5 CPT: 53536
== END ==
PROVIDERS: PCP Family Medicine; Visit Provider Internal Medicine Gastroenterology
DX: Z86.010 Personal history of colon polyps (principal)
CPT/HCPCS: 88305

== ENCOUNTER 2020-03-23 06:52 | Emergency (ER) | payer OTHER, SELFPAY ==
[2019-12-21 06:23] VITALS: BMI 26.6
[2020-03-23 06:54] VITALS: BP 121/85; PULSE 96; RESP 12; TEMP 36.6; O2SAT 97; BMI 26.4
--- NOTE | 2020-03-23 07:12 | ED.DCSUM_ITS ---
- ER Visit Summary Date of Service: 03/23/20 Chief Complaint: Asthma exacerbation History of Present Illness: The patient is a 59 M who presents with asthma exacerbation that began this morning. Patient states he woke up and was having some difficulty breathing. Patient states he felt like he needed to breathe faster. Patient did not think he was having any wheezing. Patient states he used his rescue inhaler but did not feel like he got any improvement with that. Patient denies any fevers or chills. Patient states he did cough several times and coughed up some clear sputum. Patient denies any chest pain. Patient denies any sick contacts. Patient does admit to some nasal congestion. Physical Examination: Vital signs are stable. Patient is afebrile. Patient is in no acute distress. Oral mucosa is pink and moist. Neck is supple. Trachea is midline. There is no JVD noted. Heart was regular rate and rhythm. Lungs are clear but diminished bilaterally. Abdomen is soft. Bowel sounds are normal. There is no tenderness. There is no rebound or guarding noted. Skin is warm dry. Cranial nerves II through XII are intact. There are no focal motor or sensory deficits noted. Extremities are intact. There is no calf tenderness or edema. Emergency Department Course and Treatment: Patient was given a DuoNeb aerosol here. Patient feels better on reevaluation. Patient's lungs are clear and improved aeration. Patient was instructed to continue his inhaler as needed. Patient was instructed to follow-up with his primary care physician in 5 to 7 days. Patient understood and was agreeable with the plan. All questions were answered. Disposition: Discharge home Impression: Asthma exacerbation This note was generated with [email or web address] dictation software. It may contain incorrect words, spelling, and punctuation that were not noted in review of the chart prior to signing ED Disposition - Plan for ED Patient: Disposition: Home or Assisted Living Diagnosis: Asthma Instructions: ED Asthma, Acute (Adult) Referrals: Franco Beltrán MD [Primary Care Provider] - 3-5 Days
[2020-03-23] MEDS: Ipratropium/Albuterol Sulfate 3 ML AMPUL.NEB INHALATION (07:27)
[2020-03-23 07:28] VITALS: PULSE 86; RESP 20
[2020-03-23 08:05] VITALS: BP 112/81; PULSE 86; RESP 16; O2SAT 99
--- NOTE | 2020-03-23 08:06 | ED.RN ---
DISCHARGE INSTRUCTIONS GIVEN TO AND REVIEWED WITH PATIENT, PATIENT DENIES QUESTIONS OR CONCERNS AND VOICES UNDERSTANDING OF DISCHARGE INSTRUCTIONS. PT AMBULATES OUT OF ROOM WITHOUT DIFFICULTY.
== END 2020-03-23 08:07 | disposition home or self-care (01) ==
LOC: ED 08:04
PROVIDERS: Emergency Provider Emergency Medicine; PCP Family Medicine
DX: J45.901 Unspecified asthma with (acute) exacerbation (principal)
CPT/HCPCS: 94640; 99282

== ENCOUNTER → 2020-12-20 13:26 | Outpatient (CLI) | payer OTHER, SELFPAY | PROVIDERS: PCP Family Medicine; Referring Provider Physician Assistant; Visit Provider Physician Assistant | DX: U07.1 COVID-19 (principal) | CPT/HCPCS: 87635; U0005; U0003 ==

== ENCOUNTER 2020-12-25 08:12 | Emergency (ER) | payer OTHER, SELFPAY ==
[2020-12-25 08:13] VITALS: BP 99/73; PULSE 83; RESP 18; TEMP 36.8; O2SAT 96; BMI 27.7
[2020-12-25 08:17] VITALS: BP 99/73; PULSE 83; RESP 18; TEMP 36.8; O2SAT 96
--- NOTE | 2020-12-25 08:30 | EKG12_ITS ---
Test Reason : SYNCOPE Blood Pressure : / mmHG Vent. Rate : 083 BPM Atrial Rate : 083 BPM P-R Int : 122 ms QRS Dur : 084 ms QT Int : 360 ms P-R-T Axes : 058 039 041 degrees QTc Int : 423 ms Normal sinus rhythm Normal ECG Confirmed by SHARAN ACEVES, LIZET ([id number]), primer expeditor and drier RAFA DUBON ([id number]) on 12/26/2020 2:04:19 PM Referred By: JAMES Confirmed By:LIZET TSANG MD
--- NOTE | 2020-12-25 08:30 | CT_ITS ---
STUDY: CT BRAIN WITHOUT CONTRAST REASON FOR EXAM: Male, 60 years old. head trauma RADIATION DOSAGE (If Supplied By Facility): CTDIvol = ( 44.99 ) mGy, DLP = ( 762.36 ) mGycm TECHNIQUE: Transaxial CT imaging of the brain was performed without administration of intravenous contrast material. Individualized dose optimization techniques were used for this CT. COMPARISON: No relevant priors. FINDINGS: Normal soft tissue structures. Normal calvarium. Normal size ventricles and extra-axial spaces for the patient''s age. Normal white matter tracts of the cerebral hemispheres. Normal basal ganglia and thalami. Normal brainstem. Normal cerebellum. Diffuse subarachnoid hemorrhage identified in the basilar cisterns and frontal cerebral sulci seen slightly more on the right than the left. No intraventricular hemorrhage seen. There are no findings of an acute ischemic infarction. There is mucoperiosteal inflammatory disease of the paranasal sinuses consistent with severe chronic sinusitis. CT/Brain/Head without Contrast IMPRESSION: 1. Diffuse subarachnoid hemorrhage involving the frontal cerebral sulci and basilar cisterns, right mildly more than left. N.B. : The above Results were Read Back by Lencho Pak MD (Brooks) to Hema Gray and understanding confirmed on 12/25/2020 09:44:25 (ET). Electronically Signed: Lencho Pak MD (Brooks) at 9:46 EST , Service support ,
--- NOTE | 2020-12-25 08:34 | EX.ED.DYSGE1 ---
HPI History of Present Illness Chief Complaint: Fall Narrative Narrative: Patient presents status post fall. History and physical is limited secondary to mild confusion. He states he does not remember what happened to him. The last thing he remembers was that he was sitting in the bathtub. He relates history that he tested positive for Covid approximately 7 days ago. He states he had a home kit that was performed. His symptoms started as a fever. According to EMS, he was sitting in the bathtub and went to get out, struck his right forehead against the tub. called EMS because he was unresponsive. He is now awake, and alert. He is oriented x3, but does not remember what happened or who called the squad. He is unsure of his last tetanus immunization. He denies any headache but sustained a laceration on his right religion/lateral eyebrow. [facility] Medical History Atypical pneumonia Hypoxia No pertinent family history Renal insufficiency Home Medications triamcinolone acetonide 1 spray NS DAILY 04/06/19 [History Last Taken Unknown] albuterol sulfate 90 mcg/actuation aerosol inhaler 2 puff INHALATION Q4H PRN #1 device 12/21/19 [Rx Last Taken Unknown] fluticasone 500 mcg-salmeterol 50 mcg/dose blistr powdr for inhalation 1 inh INHALATION BID #60 ea 12/21/19 [Rx Last Taken Unknown] Allergy/AdvReac Type Severity Reaction Status Date / Time No Known Allergies Allergy Verified 12/25/20 08:23 Surgical History nasal polyp surgery Social History (Updated 12/21/19 @ 07:[address] Rommel Patton, DO) Smoking Status: Never smoker EXAM Physical Exam Narrative Exam Narrative: Afebrile. Vital signs noted. HEENT: Normocephalic. 1.5 to 2 cm laceration, star-shaped, right religion to eyebrow. PERRL, EOMI. Neck soft and supple. No point tenderness or step off. Cardiovascular: Regular rate and rhythm. No murmurs, rubs, or gallops appreciated. Respiratory: No tachypnea. Lungs clear to auscultation bilaterally. Gastrointestinal: Abdomen soft, nontender, with normoactive bowel sounds. No rebound or guarding. Neurological: Awake. Alert. Oriented x3. Nonfocal, nonlateralizing. DTRs equal and symmetric. Skin: No rash. Normal color. No pallor. Musculoskeletal: No pedal edema. Full range of motion extremities. Pelvis stable. Const Vital Signs: 12/25/20 08:13 12/25/20 08:17 12/25/20 09:46 Temperature 98.2 F 98.2 F Temperature Source Oral Oral Pulse Rate 83 83 80 Respiratory Rate 18 18 18 Respiratory Effort Normal Respiratory Depth Normal Respiratory Pattern Normal Blood Pressure 99/73 99/73 114/83 H Blood Pressure Mean 81 81 93 Pulse Ox 96 96 100 Oxygen Delivery Method Room Air Room Air Room Air MDM MDM MDM Narrative Medical decision making narrative: EKG was obtained which demonstrates normal sinus rhythm at 58 bpm without ectopy or acute ST changes. I reviewed his records and he was Covid positive from the drive-through on 12/20/2020. Blood pressure has come up to 114/83. I received a call from the radiologist that the CT of the brain does show a subarachnoid hemorrhage that is diffuse in the basal cisterns, and in the frontal area right greater than left. No shift. WBC count slightly low at 4.1 consistent with his COVID-19. Hemoglobin hemoconcentrated at 18.0. Electrolyte panel is unremarkable. Lactic acid is normal at 1.2. I will add coagulation studies, however he is not on any blood thinners. I discussed the patient with Dr. Boone at [facility] who was accepted him in an ED to an ED transfer. I also spoke with his , Jenn. He will be transferred in guarded condition. Currently, he is in stable condition. Lab Data Attestation: I reviewed the patient's lab results. Labs: Laboratory Results - last 24 hr 12/25/20 12/25/20 12/25/20 07:55 07:55 08:45 WBC 4.1 L RBC 5.72 Hgb 18.0 H* Hct 51.9 MCV 90.7 MCH 31.5 MCHC 34.7 RDW Std Deviation 45.7 H RDW Coeff of Grayson 13.6 Plt Count 108 L MPV 9.6 Immature Gran % (Auto) 0.700 Neut % (Auto) 53.7 Lymph % (Auto) 36.0 Vance % (Auto) 7.4 Eos % (Auto) 1.5 Baso % (Auto) 0.7 Absolute Neuts (auto) 2.2 Absolute Lymphs (auto) 1.46 Nucleated RBC % 0 Diff Path Review May foll Sodium 138 Potassium 4.3 Chloride 104 Carbon Dioxide 26.0 Anion Gap 8 BUN 14 Creatinine 1.18 Estim Creat Clear Calc 61.58 Est GFR (MDRD) Af Amer 81 Est GFR (MDRD) Non-Af 67 BUN/Creatinine Ratio 11.9 Glucose 125 H Lactic Acid 1.2 Calcium 8.5 Total Bilirubin 0.50 AST 41 H ALT 43 Alkaline Phosphatase 69 Troponin I High Sens 6 Total Protein 7.3 Albumin 3.2 Globulin 4.1 Albumin/Globulin Ratio 0.8 L Radiography Diagnostic Testing: Clinical Impression(s) from Imaging Studies Brain CT 12/25/20 08:30 IMPRESSION: 1. Diffuse subarachnoid hemorrhage involving the frontal cerebral sulci and basilar cisterns, right mildly more than left. N.B. : The above Results were Read Back by Lencho Pak MD (Brooks) to Hema Gray and understanding confirmed on 12/25/2020 09:44:25 (ET). Electronically Signed: Lencho Pak MD (Brooks) at 9:46 EST , Service support , ADDENDUM: 12/25/20 0953 IMPRESSION: 1. Diffuse subarachnoid hemorrhage involving the frontal cerebral sulci and basilar cisterns, right mildly more than left. N.B. : The above Results were Read Back by Lencho Pak MD (Brooks) to Hema Gray and understanding confirmed on 12/25/2020 09:44:25 (ET). Electronically Signed: Lencho Pak MD (Brooks) at 9:46 EST , Service support , Chest X-Ray 12/25/20 09:30 IMPRESSION: Nonacute portable x-ray examination of the chest. Electronically Signed: Lencho Pak MD (Brooks) at 9:47 EST , Service support , Critical Care Time Critical care time (excluding procedures): 30-74 minutes (32), Including time spent:, Discussing w/Patient &/or Family/Netting Inspector, Discussing w/Consultants and Arranging Admission or Transfer Discharge Plan Triage Chief Complaint: Fall ED Provider: Hema Gray Dx/Rx/DC Orders Prescriptions: No Action fluticasone propion-salmeterol [Advair Diskus] 500-50 mcg/dose blister with device 1 inh INHALATION BID Qty: 60 RF: 11 albuterol sulfate [ProAir HFA] 90 mcg/actuation HFA aerosol inhaler 2 puff INHALATION Q4H PRN (Reason: shortness of breath or wheezing) Qty: 1 RF: 11 triamcinolone acetonide 1 SPRAY aerosol,spray 1 spray NS DAILY RF: 0 Primary Care Provider: Franco Beltrán
[2020-12-25 08:56] LABS: Absolute Lymphocyte Count 1.46 X10^3/uL (0.83-4.51); Absolute Neutrophil Count 2.2 X10^3/uL (2.0-7.7); Basophil# 0.03 X10^3/uL; Basophil% 0.7 % (0-1); Eosinophil# 0.06 X10^3/uL; Eosinophils% 1.5 % (0-5); Hematocrit 51.9 % (40-54); Lymphocyte # 1.46 X10^3/ul (0.83-4.51); Mean Corp Hgb Conc 34.7 g/dL (32-36); Mean Corpuscular Hgb 31.5 pg (27.0-32.0); Mean Corpuscular Volume 90.7 fL (80-94); Mean Platelet Vol. 9.6 fl (6.2-12.0); Monocyte% 7.4 % (0-10); NRBC Flagged by Analyzer 0 % (0-5); Neutrophil # 2.18 X10^3/uL (2.7-7.7); Neutrophil % 53.7 % (47-70); Platelet Count 108 K/mm3 (150-450); RBC Distribution Width CV 13.6 % (11.6-14.6); RBC Distribution Width SD 45.7 fl (35.1-43.9); Red Blood Count 5.72 M/mm3 (4.6-6.2); White Blood Count 4.1 K/mm3 (4.4-11.0)
[2020-12-25] MEDS: 0.9% Normal Saline 1,000 ML 999 ML IV (09:12)
[2020-12-25] MEDS: Diphth,Pertuss(Acell),Tet Vac 0.5 ML Vial IM (09:12)
[2020-12-25 09:15] LABS: ALB/GLOB Ratio 0.8 RATIO (0.9-2.4); AST(SGOT) 41 U/L (15-37); Alanine Aminotransfer ALT/SGPT 43 U/L (16-61); Albumin, Serum 3.2 g/dL (3.2-5.0); Alkaline Phosphatase 69 U/L (45-117); Anion Gap 8 (5-15); BUN 14 mg/dL (7-18); BUN/Creat Ratio 11.9 RATIO (10-20); Calcium,Total 8.5 mg/dL (8.5-10.1); Chloride 104 mmol/L (98-107); Creatinine, Serum 1.18 mg/dL (0.70-1.30); EST Glomerular Filtration Rate 67 mL/min (>60); Est Glom Filt Rate - Afr Amer 81 mL/min (>60); Estimated Creatinine Clearance 61.58 ml/min; Globulin 4.1 g/dL (2.2-4.2); Glucose 125 mg/dL (74-106); Potassium 4.3 mmol/L (3.5-5.1); Protein, Total 7.3 g/dL (6.4-8.2); Sodium Level 138 mmol/L (136-145); Troponin-I HS 6 pg/mL (3.0-78.0)
[2020-12-25 09:30] LABS: Lactic Acid 1.2 mmol/L (0.4-1.9)
--- NOTE | 2020-12-25 09:30 | RAD_ITS ---
STUDY: X-RAY CHEST REASON FOR EXAM: Male, 60 years old. cough TECHNIQUE: PA and lateral views of the chest. COMPARISON: 03/19/2019 FINDINGS: EKG leads project over the chest. The lungs are clear and expanded. There is no demonstrated pleural abnormality. Normal size heart. Normal mediastinum and bernadette. Normal visualized pulmonary arteries. Normal visualized aortic arch and descending thoracic aorta. Normal visualized thoracic spine. Normal visualized ribs, clavicles, and shoulders. There is no demonstrated abnormality of the visualized soft tissue structures of the upper abdomen. RAD/Chest 1 View (Portable) IMPRESSION: Nonacute portable x-ray examination of the chest. Electronically Signed: Lencho Pak MD (Brooks) at 9:47 EST , Service support ,
[2020-12-25 09:46] VITALS: BP 114/83; PULSE 80; RESP 18; O2SAT 100
[2020-12-25] MEDS: Lidocaine 1% (20 ml mdv) 20 ML Vial 30 ML INFILT (09:49)
--- NOTE | 2020-12-25 09:55 | NURSING ---
CALLED [facility], TALKED TO KRISTY.
--- NOTE | 2020-12-25 10:23 | NURSING ---
CALLED [facility], ETA IS 60 MIN
[2020-12-25 11:13] VITALS: BP 129/79; PULSE 80; RESP 18; O2SAT 98
[2020-12-26 10:11] LABS: Pathologist Review Reviewed
== END 2020-12-25 11:55 | disposition short-term general hospital (02) ==
PROVIDERS: Emergency Provider Emergency Medicine; PCP Family Medicine
DX: R41.0 Disorientation, unspecified (principal); Z79.51 Long term (current) use of inhaled steroids; Z79.899 Other long term (current) drug therapy
CPT/HCPCS: 70450; 71045; 80053; 83605; 84484; 85025; 87040; 90715; 93005; 96372; 99285

== ENCOUNTER → 2021-01-24 15:07 | Outpatient (CLI) | payer OTHER, SELFPAY | PROVIDERS: PCP Family Medicine; Referring Provider Physician Assistant; Visit Provider Physician Assistant | DX: Z11.52 Encounter for screening for COVID-19 (principal) | CPT/HCPCS: 87635; U0005; U0003 ==

== ENCOUNTER → 2021-11-06 | Outpatient (CLI) | payer OTHER, SELFPAY ==
--- NOTE | 2021-11-06 06:45 | CT_ITS ---
STUDY: CT MAXILLOFACIAL SINUSES REASON FOR EXAM: Male, 61 years old. CHRONIC SINUSITIS. Prior polyps removed RADIATION DOSAGE (If Supplied By Facility): CTDIvol = ( 33.06 ) mGy, DLP = ( 796.66 ) mGycm TECHNIQUE: The patient was scanned in a multi detector CT scanner. High resolution axial imaging was performed without the administration of intravenous contrast material. Sagittal and coronal images were reconstructed. Individualized dose optimization techniques were used for this CT. COMPARISON: Comparison is made with prior study dated 01/14/2019. FINDINGS: FRONTAL SINUSES: Opacification of the frontal sinuses. ETHMOIDAL SINUSES: Opacification of the ethmoid sinuses with thinning of the bony septations. MAXILLARY SINUSES: There is opacification of both maxillary sinuses. SPHENOIDAL SINUSES: Opacification of the sphenoid sinus is worse on the left side. There is occlusion of the bilateral maxillary infundibula due to soft tissue proliferation. Soft tissue prominence in the nasal cavity extending into the nasopharynx suggestive of polyposis. Normal bilateral inferior turbinates. Normal midline nasal septum. The visualized osseous structures are normal. The visualized bilateral orbital contents are normal. CT/Sinus/Facial Bone IMPRESSION: HUGHES sinusitis. Soft tissue prominence within the nasal cavities extending into the nasopharynx. Electronically Signed: Hugo Suresh MD at 9:22 EDT ,
== END | disposition home or self-care (01) ==
LOC: CT 06:42
PROVIDERS: PCP Family Medicine; Referring Provider Otolaryngology; Visit Provider Otolaryngology
DX: J32.8 Other chronic sinusitis (principal); J33.0 Polyp of nasal cavity
CPT/HCPCS: 70486

== ENCOUNTER 2021-12-30 08:43 | Day surgery (SDC) | payer OTHER, SELFPAY ==
--- NOTE | 2021-12-24 15:54 | EKG12_ITS ---
Test Reason : PRE OP Blood Pressure : / mmHG Vent. Rate : 090 BPM Atrial Rate : 090 BPM P-R Int : 118 ms QRS Dur : 076 ms QT Int : 360 ms P-R-T Axes : 070 -01 058 degrees QTc Int : 440 ms Normal sinus rhythm Low voltage QRS (Limb Leads) Confirmed by SENDY ACEVES, GILSON ([id number]), senior editor RAFA DUBON ([id number]) on 12/25/2021 7:53:13 AM Referred By: Rahul Wyatt Confirmed By:GILSON KABA MD
[2021-12-30] VITALS (7 sets, daily range): BP systolic 106–144; BP diastolic 70–106; PULSE 62–85; RESP 15–20; TEMP 36.4–37; O2SAT 97–100; BMI 24.7
[2021-12-30] MEDS: Lactated Ringers 1,000 ML 15 ML IV ×2 (09:00→11:45)
[2021-12-30] MEDS: Oxymetazoline 0.05% 1 SPRAY SPRAY.BTL 3 SPRAY NASAL (09:30)
[2021-12-30 09:33] LABS: Hemoglobin 17.9 g/dL (13.0-16.5); Mean Corp Hgb Conc 33.1 g/dL (32-36); Mean Corpuscular Hgb 31.9 pg (27.0-32.0); Mean Corpuscular Volume 96.1 fL (80-94); Mean Platelet Vol. 9.5 fl (6.2-12.0); Platelet Count 191 K/mm3 (150-450); RBC Distribution Width CV 13.7 % (11.6-14.6); RBC Distribution Width SD 48.7 fl (35.1-43.9); Red Blood Count 5.62 M/mm3 (4.6-6.2); White Blood Count 5.5 K/mm3 (4.4-11.0)
--- NOTE | 2021-12-30 10:14 | PCM.DC.SUM ---
Providers Primary Care Physician: Dr. Franco Beltrán MD Reason For Visit: FESS W NAVIGATION Medications at Discharge Home Medications albuterol sulfate 90 mcg/actuation aerosol inhaler (ProAir HFA) 2 puff inhalation Q4H PRN shortness of breath or wheezing #1 device 02/26/21 fluticasone 500 mcg-salmeterol 50 mcg/dose blistr powdr for inhalation (Advair Diskus) 1 inh inhalation PRN PRN SOB 12/24/21 Weight / BMI Weight Weight: 80.7 kg Body Mass Index (BMI) 24.7 ABG / Lab / Microbiology Data Result Diagrams: 12/30/21 09:18 12/30/21 10:00 Laboratory: Laboratory Results - last 24 hr 12/30/21 09:18: WBC 5.5, RBC 5.62, Hgb 17.9 H, Hct 54.0, MCV 96.1 H, MCH 31.9, MCHC 33.1, RDW Std Deviation 48.7 H, RDW Coeff of Grayson 13.7, Plt Count 191, MPV 9.5 12/30/21 09:18: Sodium Cancelled, Potassium Cancelled, Chloride Cancelled, Carbon Dioxide Cancelled, Anion Gap Cancelled, BUN Cancelled, Creatinine Cancelled, Estim Creat Clear Calc Cancelled, Est GFR (MDRD) Af Amer Cancelled, Est GFR (MDRD) Non-Af Cancelled, BUN/Creatinine Ratio Cancelled, Glucose Cancelled, Calcium Cancelled D/C Instructions Discharge Diet: No restrictions Discharge Activity: Return to Normal Activity Additional Activity Instructions: no nose blowing. Start irrigation tomorrow morning. Irrigate 4x/day. Please Follow Up With: Rahul Wyatt MD When: Next week Meaningful Use Info Meaningful Use Diagnoses (Choose all that apply): None applicable Discharge Plan Admission Attending Provider: Rahul Wyatt Primary Care Provider: Franco Beltrán Consulting Providers: Todd Mckeon Discharge Orders/Prescriptions Prescriptions: No Action albuterol sulfate [ProAir HFA] 90 mcg/actuation HFA aerosol inhaler 2 puff INHALATION Q4H PRN (Reason: shortness of breath or wheezing) Qty: 1 6RF fluticasone propion-salmeterol [Advair Diskus] 500-50 mcg/dose blister with device 1 inh INHALATION PRN PRN (Reason: SOB) Referrals / Follow Up: Franco Beltrán MD [Primary Care Provider] - Disposition Disposition (needs filled in before D/C Order can be placed): Home, Self Care
[2021-12-30 10:24] LABS: Anion Gap 5 (5-15); BUN 18 mg/dL (7-18); BUN/Creat Ratio 15.9 RATIO (10-20); Calcium,Total 8.6 mg/dL (8.5-10.1); Chloride 110 mmol/L (98-107); Creatinine, Serum 1.13 mg/dL (0.70-1.30); EST Glomerular Filtration Rate 71 mL/min (>60); Est Glom Filt Rate - Afr Amer 85 mL/min (>60); Estimated Creatinine Clearance 74.97 ml/min; Glucose 107 mg/dL (74-106); Sodium Level 142 mmol/L (136-145)
[2021-12-30] MEDS: Lidocaine 2% /Epi 1:100 (20ml) 20 ML VIAL (10:38)
[2021-12-30] MEDS: Oxymetazoline 0.05% 1 SPRAY SPRAY.BTL 15 SPRAY (10:38)
--- NOTE | 2021-12-30 10:45 | NASAL_PTH ---
PATIENT: YING ARANDA II LOC: [facility] [place] U#:[id number] AGE/SX: 61/M ROOM: RE12/30/[address]: Dr. Rahul Wyatt MD : 1960 BED: DIS: 12/30/2021 SPEC #: [id number] RECD: 12/30/21 13:40 STATUS: KENIA REMonalisa #: [id number] DEVEN: 12/30/21 10:[address]: Rahul Wyatt DEPT: SURGICAL PATHOLOGY RECD BY: Sylvie Velazquez ENTERED: 12/31/21 09:38 SP TYPE: NASAL SPEC OTHR DR: MD Dr. Sotero Waterman MD Tissues: A - Ethmoid sinus, NOS B - Ethmoid sinus, NOS Procedures: Surgery Specimen Level IV HEADER OPERATION: Functional endoscopic sinus surgery with Navigation, bilateral PRE-OP DIAGNOSIS: Chronic sinusitis TISSUE SUBMITTED: A ? Right sinus contents, B ? Left sinus contents MICROSCOPIC DIAGNOSIS A. Right sinus contents: Fragments of respiratory mucosa with chronic inflammation. B. Left sinus contents: Fragments of respiratory mucosa with chronic inflammation. MIKO:rabia 01/03/2022 MICROSCOPIC DESCRIPTION Slides are reviewed. GROSS DESCRIPTION A - Received in fixative is one container labeled with the patient's name and designated right sinus contents. The specimen consists of multiple irregular fragments of cabral soft tissue mixed with possible fragments of bone that in aggregate measure 2 x 1 x 0.1 cm. The specimen is totally submitted in one cassette after decalcification. B - Received in fixative is one container labeled with the patient's name and designated left sinus contents. The specimen consists of multiple irregular fragments of cabral-brown soft tissue mixed with possible fragments of bone that in aggregate measure 5 x 3 x 0.3 cm. The specimen is totally submitted in two cassettes after decalcification. / MIKO:rabia 12/31/2021 TC:3 CPT: 04366 x2
--- NOTE | 2021-12-30 11:37 | OP.PCM_ITS ---
Report of Operation Date of Procedure: 12/30/21 Pre-Operative Diagnosis: chronic sinusitis with polyposis Post-Operative Diagnosis: same Surgery/Procedure Performed:: Bilateral total ethmoidectomy bilateral sphernoidotomy right maxillary antrostomy left maxillary antrostomy with tissue removal Surgeon: Rahul Wyatt Type of Anesthesia: General Anesthesiologist: Demetrius Man Estimated Blood Loss (mL): minimal Description of Procedure: The patient was taken to the operating room on 12/30/2021. The patient was placed in the supine position on the operating table. The patient was given sufficient general endotracheal anesthesia. The head of bed was elevated 30 degrees. The navigation system was placed and verified per protocol and found to be accurate. 0 and 30 degrees rigid nasal endoscopes were used throughout the entire case. The middle turbinate uncinate process and polyps were injected with 1% lidocaine with epinephrine bilaterally. The right middle turbinate was medialized with a [place] elevator. Polyp was removed from the middle meatus using a sinus shaver. The maxillary antrostomy was created by removing polyp from the antrum. The right maxillary sinus was inspected and found to have mucosa with some polypoid degeneration without valentín polyps. Next, anterior and posterior ethmoidectomy were then carried out using a siinus shaver and 45 degree [place] Adolfo forceps. Ethmoid cells were verified for relation to the skull base and orbit prior to being entered with the navigation system. The front face of the sphenoid was opened with a suction. Polyp was removed from the opening of the sinusotomy. I then placed Afrin pledgets into the sinonasal cavity. Next attention was turned to the left side. The middle turbinate was medialized with a [place] elevator. A large polyp was removed from the middle meatus using a sinus shaver. Polyp was removed from the maxillary antrum thus recreating a antrostomy. Tissue was removed from the maxillary sinus using a microdebrider with a 30 degree rigid nasal endoscope for visualization. The ethmoid polyp was removed using a sinus shaver. Anterior posterior ethmoidectomy were then carried out using a sinus shaver curette and [place] Adolfo forceps. Ethmoid cells were verified for relation to the skull base and orbit prior to being entered with the navigation system. There was a polyp occluding the natural sphenoid ostia. This was removed with a sinus shaver. The sphenoid was then opened on the left side using a sinus shaver and confirmed with navigation. Hemostasis was then achieved using Afrin pledgets. Suction cautery was used sparingly for hemostasis. The pledgets were then removed bilaterally and Allen powder was applied bilaterally for absolute hemostasis. The procedure was then terminated. The patient was then awoken and brought to the recovery room in stable condition blood loss less than 30 cc replacement none. Sponge, needle, instrument count were correct at the end of the procedure.
== END 2021-12-30 13:25 | disposition home or self-care (01) ==
LOC: SDC 08:44 → AC 08:52
PROVIDERS: PCP Family Medicine; Referring Provider Otolaryngology; Visit Provider Otolaryngology
PROC: (CPT 31267; principal; 2021-12-30 10:15)
DX: J32.8 Other chronic sinusitis (principal); R09.81 Nasal congestion; J33.8 Other polyp of sinus; J45.909 Unspecified asthma, uncomplicated
CPT/HCPCS: 31267; 31257; 00160; 80048; 85027; 88305; 93005; J7120; J2405

== ENCOUNTER 2022-02-20 19:45 | Inpatient (IN) | payer OTHER, SELFPAY ==
[2022-02-20] VITALS (12 sets, daily range): BP systolic 109–148; BP diastolic 71–80; PULSE 107–119; RESP 11–24; TEMP 36.4–36.9; O2SAT 86–97; BMI 24.4; BMI 25.2
--- NOTE | 2022-02-20 20:26 | EKG12_ITS ---
Test Reason : CP Blood Pressure : / mmHG Vent. Rate : 114 BPM Atrial Rate : 114 BPM P-R Int : 114 ms QRS Dur : 084 ms QT Int : 328 ms P-R-T Axes : 072 046 077 degrees QTc Int : 452 ms Sinus tachycardia Otherwise normal ECG Confirmed by SHARAN ACEVES, LIZET ([id number]), medical editor RAFA DUBON ([id number]) on 02/25/2022 9:24:31 AM Referred By: BB Confirmed By:LIZET TSANG MD
--- NOTE | 2022-02-20 20:32 | ED.VIS.DYS ---
HPI History of Present Illness Chief Complaint: Shortness of Breath Narrative Narrative: Patient presents with dyspnea. He has a history of asthma, this was diagnosed a few years ago. He had an asthma exacerbation about 2 months ago, this is much worse has been going on for few days. He has no fever chills he does not have a productive cough he has no chest pain. He does not know why this episode started. He is not a smoker. [facility] Medical History Alcohol use Asthma Atypical pneumonia History of steroid therapy Hypoxia Injury of head and neck Leg cramps Loss of consciousness Non-smoker Renal insufficiency Home Medications albuterol sulfate 90 mcg/actuation aerosol inhaler (ProAir HFA) 2 puff inhalation Q4H PRN shortness of breath or wheezing #1 device 02/26/21 [Rx Last Taken Unknown] fluticasone 500 mcg-salmeterol 50 mcg/dose blistr powdr for inhalation (Advair Diskus) 1 inh inhalation PRN PRN SOB 12/24/21 [History Last Taken 12/30/21] Allergy/AdvReac Type Severity Reaction Status Date / Time No Known Allergies Allergy Verified 02/20/22 20:33 Surgical History Hx of colonoscopy Hx of left cataract extraction Hx of right cataract extraction nasal polyp surgery Social History Smoking Status: Never smoker ROS ROS ED ROS Narrative Past medical history: Reviewed, includes asthma Medications: Reviewed Social history: Noncontributory Review of systems: All systems negative except as indicated General: No fever Eyes: No visual changes ENT: No upper airway congestion, normal voice Neck: No neck pain Cardiovascular: No chest pain Respiratory: Dyspnea as in HPI Gastrointestinal: No abdominal pain, nausea vomiting or diarrhea Genitourinary: No dysuria EXAM Physical Exam Narrative Exam Narrative: Physical exam General: He appears in some distress. Head: Normocephalic, Atraumatic Eyes: Conjunctiva not pale ENT: Moist mucous membranes Neck: Supple, Nontender, No lymphadenopathy Cardiovascular: Regular rate, Regular rhythm Respiratory: Quite diminished breath sounds bilaterally he is tachypneic with scant wheezing. Abdomen: Soft, Nontender, Nondistended Back: Nontender, Normal Inspection. Negative for: CVA tenderness Extremities: Nontender, No edema Skin: Normal color, No rash Neurological: Alert, Normal Strength, Normal Sensation Const Vital Signs: 02/20/22 19:46 02/20/22 19:52 02/20/22 20:04 Temperature 98.3 F Temperature Source Temporal Pulse Rate 118 H Respiratory Rate 22 H Respiratory Effort Respiratory Depth Respiratory Pattern Blood Pressure 148/80 H Blood Pressure Mean 102 Pulse Ox 87 86 Oxygen Delivery Method Room Air Nasal Cannula Nasal Cannula Oxygen Flow Rate (L/min) 2 2 Fraction of Inspired Oxygen (FIO2) 02/20/22 20:05 02/20/22 20:06 02/20/22 20:07 Temperature Temperature Source Pulse Rate Respiratory Rate 12 Respiratory Effort Respiratory Depth Respiratory Pattern Blood Pressure Blood Pressure Mean Pulse Ox 90 91 91 Oxygen Delivery Method Nasal Cannula Venturi Mask Venturi Mask Oxygen Flow Rate (L/min) 6 8 8 Fraction of Inspired Oxygen (FIO2) 40 40 02/20/22 20:32 02/20/22 20:34 02/20/22 21:06 Temperature 97.5 F L 98.4 F Temperature Source Temporal Temporal Pulse Rate 107 H 108 H Respiratory Rate 14 16 Respiratory Effort Labored Respiratory Depth Deep Respiratory Pattern Normal Blood Pressure 122/75 H 124/77 H Blood Pressure Mean 90 92 Pulse Ox 94 97 Oxygen Delivery Method Venturi Mask Venturi Mask Venturi Mask Oxygen Flow Rate (L/min) 8 8 8 Fraction of Inspired Oxygen (FIO2) 02/20/22 21:07 02/20/22 20:38 02/20/22 20:38 Temperature 98.4 F Temperature Source Temporal Pulse Rate 111 H 119 H Respiratory Rate 11 L 20 H 24 H Respiratory Effort Normal Non-Labored Short of Breath Respiratory Depth Shallow Respiratory Pattern Normal Tachypnea Blood Pressure 124/77 H Blood Pressure Mean 92 Pulse Ox 96 93 Oxygen Delivery Method Room Air Venturi Mask Oxygen Flow Rate (L/min) 8 Fraction of Inspired Oxygen (FIO2) 40 02/20/22 21:22 Temperature Temperature Source Pulse Rate Respiratory Rate Respiratory Effort Respiratory Depth Respiratory Pattern Blood Pressure Blood Pressure Mean Pulse Ox 92 Oxygen Delivery Method Room Air Oxygen Flow Rate (L/min) Fraction of Inspired Oxygen (FIO2) MDM MDM MDM Narrative Medical decision making narrative: Patient arrived to the ED hypoxic at 87%. He was given nebulizers, Solu-Medrol he slightly improved his pulse ox is still 90% if I take him off the oxygen he also has bilateral pneumonia on the x-ray. Antibiotics were given, Rocephin and azithromycin. I [place] blood cultures. I will admit the patient. A. Problems addressed ( does not have to be diagnoses) Pneumonia Hypoxia Asthma B. Amount and/or complexity of the data (2 out of 3) 1. Any 3 Blood work including CBC and CMP are unremarkable. COVID was also ordered. I discussed the patient with who was in the room 2. Independent interpretation of test Telemetry: Normal sinus rhythm with a rate in the 80s. No ectopy. 3. Discussion of management with the hospitalist who admitted the patient. C. Risk of complications and/or morbidity-see above Differential diagnosis: I thought about pulmonary embolism, however the patient does not have pleuritic component, he has wheezing and his history is more consistent with asthma. Lab Data Labs: Laboratory Results - last 24 hr 02/20/22 02/20/22 20:25 20:25 WBC 6.1 RBC 5.21 Hgb 16.5 Hct 49.1 MCV 94.2 H MCH 31.7 MCHC 33.6 RDW Std Deviation 47.8 H RDW Coeff of [place] 13.7 Plt Count 208 MPV 9.6 Immature Gran % (Auto) 0.500 Neut % (Auto) 71.1 H Lymph % (Auto) 20.7 [place] % (Auto) 3.8 Eos % (Auto) 3.6 Baso % (Auto) 0.3 Absolute Neuts (auto) 4.4 Absolute Lymphs (auto) 1.27 Nucleated RBC % 0 Sodium 140 Potassium 4.3 Chloride 109 H Carbon Dioxide 27.0 Anion Gap 4 L BUN 26 H Creatinine 1.36 H Estim Creat Clear Calc 62.29 Est GFR (MDRD) Af Amer 69 Est GFR (MDRD) Non-Af 57 L BUN/Creatinine Ratio 19.1 Glucose 211 H Calcium 8.8 Total Bilirubin 0.20 AST 21 ALT 30 Alkaline Phosphatase 57 Troponin I High Sens < 3 L Total Protein 6.5 Albumin 3.4 Globulin 3.1 Albumin/Globulin Ratio 1.1 Radiography Diagnostic Testing: Clinical Impression(s) from Imaging Studies Chest X-Ray 02/20/22 21:09 IMPRESSION: Bibasilar infiltrates. Electronically Signed: Bernard Esquivel DO at 21:29 EST Reading Location ID and State: [address] [place] [address] Tel [phone], Service support , Chest x-ray interpreted by me shows bilateral pneumonia. EKG Initial EKG: Comments: Sinus rhythm with a rate of 114. Normal DE and QTc intervals. No ischemic changes. Interpreted by emergency Dr. Discharge Plan Triage Chief Complaint: Shortness of Breath ED Provider: Art Taylor Dx/Rx/DC Orders Clinical Impression: Pneumonia, Hypoxia, Asthma Prescriptions: No Action albuterol sulfate [ProAir HFA] 90 mcg/actuation HFA aerosol inhaler 2 puff INHALATION Q4H PRN (Reason: shortness of breath or wheezing) Qty: 1 6RF fluticasone propion-salmeterol [Advair Diskus] 500-50 mcg/dose blister with device 1 inh INHALATION PRN PRN (Reason: SOB) Primary Care Provider: Franco Beltrán Referrals: Franco Beltrán MD [Primary Care Provider] - Disposition Disposition: Acute Care Hospital [facility]
[2022-02-20] MEDS: Ipratropium/Albuterol Sulfate 3 ML AMPUL.NEB INHALATION (20:38)
[2022-02-20] MEDS: Albuterol 2.5 MG/3 ML VIAL.NEB. INHALATION ×3 (20:41→21:01)
[2022-02-20 20:42] LABS: Absolute Lymphocyte Count 1.27 X10^3/uL (0.83-4.51); Absolute Neutrophil Count 4.4 X10^3/uL (2.0-7.7); Basophil# 0.02 X10^3/uL; Basophil% 0.3 % (0-1); Eosinophil# 0.22 X10^3/uL; Eosinophils% 3.6 % (0-5); Hematocrit 49.1 % (40-54); Hemoglobin 16.5 g/dL (13.0-16.5); Lymphocyte # 1.27 X10^3/ul (0.83-4.51); Lymphocyte % 20.7 % (19-41); Mean Corp Hgb Conc 33.6 g/dL (32-36); Mean Corpuscular Hgb 31.7 pg (27.0-32.0); Mean Corpuscular Volume 94.2 fL (80-94); Mean Platelet Vol. 9.6 fl (6.2-12.0); Monocyte# 0.23 X10^3/uL; Monocyte% 3.8 % (0-10); NRBC Flagged by Analyzer 0 % (0-5); Neutrophil # 4.36 X10^3/uL (2.7-7.7); Neutrophil % 71.1 % (47-70); Platelet Count 208 K/mm3 (150-450); RBC Distribution Width CV 13.7 % (11.6-14.6); RBC Distribution Width SD 47.8 fl (35.1-43.9); Red Blood Count 5.21 M/mm3 (4.6-6.2); White Blood Count 6.1 K/mm3 (4.4-11.0)
[2022-02-20 21:02] LABS: ALB/GLOB Ratio 1.1 RATIO (0.9-2.4); AST(SGOT) 21 U/L (15-37); Alanine Aminotransfer ALT/SGPT 30 U/L (16-61); Albumin, Serum 3.4 g/dL (3.2-5.0); Alkaline Phosphatase 57 U/L (45-117); Anion Gap 4 (5-15); BUN 26 mg/dL (7-18); BUN/Creat Ratio 19.1 RATIO (10-20); Calcium,Total 8.8 mg/dL (8.5-10.1); Chloride 109 mmol/L (98-107); Creatinine, Serum 1.36 mg/dL (0.70-1.30); EST Glomerular Filtration Rate 57 mL/min (>60); Est Glom Filt Rate - Afr Amer 69 mL/min (>60); Estimated Creatinine Clearance 62.29 ml/min; Globulin 3.1 g/dL (2.2-4.2); Glucose 211 mg/dL (74-106); Potassium 4.3 mmol/L (3.5-5.1); Protein, Total 6.5 g/dL (6.4-8.2); Sodium Level 140 mmol/L (136-145); Troponin-I HS < 3 pg/mL (3.0-78.0)
[2022-02-20] MEDS: MethylPREDNISolone 125 MG/2 ML Vial IV (21:05)
--- NOTE | 2022-02-20 21:09 | RAD_ITS ---
STUDY: X-RAY CHEST REASON FOR EXAM: Male, 61 years old. Shortness of breath. Cough. History of asthma. TECHNIQUE: Single AP portable view of the chest. COMPARISON: December 25, 2020. FINDINGS: The lungs are well-expanded. Minimal perihilar interstitial changes most marked in the lung bases There is no demonstrated pleural abnormality. Normal size heart. Normal mediastinum and bernadette. Normal visualized pulmonary arteries. Normal visualized aortic arch and descending thoracic aorta. Normal visualized thoracic spine. Normal visualized ribs, clavicles, and shoulders. There is no demonstrated abnormality of the visualized soft tissue structures of the upper abdomen. RAD/Chest 1 View (Portable) IMPRESSION: Bibasilar infiltrates. Electronically Signed: Bernard Esquivel DO at 21:29 [facility] ,
--- NOTE | 2022-02-20 21:15 | CPS ---
x3 Albuterol given to pt. in ER as well
--- NOTE | 2022-02-20 21:39 | HP.PCM.HOS_ITS ---
[facility] - General General Date of Admission: 02/20/22 Date of Service: 02/20/22 Chief Complaint: shortness of breath [facility] Narrative YING ARANDA, is a 61 M with a PMh as outlined who presents with a complaint of shortness of breath. He has a history of asthma, diagnosed a few years ago. He follows with Dr Patton. He had increased work of breathing as well. He had associated cough which was productive of clear sputum, and associated pleuritic chest pain, but denied any palpitations, dizziness, nausea, vomiting or diarrhea. Review of systems is otherwise negative. He was saturating at 87% on room air. He said prior to him starting to feel short of breath a couple of weeks ago, he used to utilise his rescue inhaler less than once a week, but has been using it daily now. Vitals were temp of 98.4F, CT of 111, BP of 124/77 and RR of 11. he was saturating at 96% on room air. CBC was unremarkable, and BMP was significant for Cr of 1.36; initial troponin was <3. CXR showed bibasilar infiltrates. He is being admitted to be managed for hypoxia due to bilateral pneumonia and acute exacerbation of asthma. [facility] Medical History Alcohol use Asthma Atypical pneumonia History of steroid therapy Hypoxia Injury of head and neck Leg cramps Loss of consciousness Non-smoker Renal insufficiency Home Medications albuterol sulfate 90 mcg/actuation aerosol inhaler (ProAir HFA) 2 puff inh alation Q4H PRN shortness of breath or wheezing #1 device 02/26/21 [Rx Last Taken Unknown] fluticasone 500 mcg-salmeterol 50 mcg/dose blistr powdr for inhalation (Advair Diskus) 1 inh inhalation PRN PRN SOB 12/24/21 [History Last Taken 12/30/21] Allergy/AdvReac Type Severity Reaction Status Date / Time No Known Allergies Allergy Verified 02/20/22 20:33 Surgical History Hx of colonoscopy Hx of left cataract extraction Hx of right cataract extraction nasal polyp surgery Social History Smoking Status: Never smoker ROS Constitutional Constitutional: Denies anorexia, chills, fatigue, fever(s), malaise or weakness Eyes Eyes: Denies change in vision ENT HEENT: Denies dysphagia, headache(s), nasal congestion or sore throat Cardiovascular Cardiovascular: Reports dyspnea on exertion; Denies chest pain, edema, lighthead edness, orthopnea, palpitations, paroxysmal nocturnal dyspnea, rapid heart rate or syncope Respiratory/Chest Respiratory/Chest: Reports cough, dyspnea, productive cough, shortness of breath at rest, shortness of breath with exertion and wheezing Gastrointestinal Gastrointestinal: Denies abdominal pain, constipation, diarrhea, dyspepsia, nausea or vomiting Genitourinary Genitourinary: Denies burning urination or dysuria Musculoskeletal Musculoskeletal: Denies arthralgias Neurologic Neurologic: Denies confusion, dizziness, headache(s), seizures or syncope Hematologic/Lymphatic Hematologic/Lymphatic: Denies anemia Vital Signs Vital Signs Vital Signs: 02/20/22 19:46 02/20/22 19:52 02/20/22 20:04 Temperature 98.3 F Temperature Source Temporal Pulse Rate 118 H Respiratory Rate 22 H Respiratory Effort Respiratory Depth Respiratory Pattern Blood Pressure 148/80 H Blood Pressure Mean 102 Pulse Ox 87 86 Oxygen Delivery Method Room Air Nasal Cannula Nasal Cannula Oxygen Flow Rate (L/min) 2 2 Fraction of Inspired Oxygen (FIO2) 02/20/22 20:05 02/20/22 20:06 02/20/22 20:07 Temperature Temperature Source Pulse Rate Respiratory Rate 12 Respiratory Effort Respiratory Depth Respiratory Pattern Blood Pressure Blood Pressure Mean Pulse Ox 90 91 91 Oxygen Delivery Method Nasal Cannula Venturi Mask Venturi Mask Oxygen Flow Rate (L/min) 6 8 8 Fraction of Inspired Oxygen (FIO2) 40 40 02/20/22 20:32 02/20/22 20:34 02/20/22 21:06 Temperature 97.5 F L 98.4 F Temperature Source Temporal Temporal Pulse Rate 107 H 108 H Respiratory Rate 14 16 Respiratory Effort Labored Respiratory Depth Deep Respiratory Pattern Normal Blood Pressure 122/75 H 124/77 H Blood Pressure Mean 90 92 Pulse Ox 94 97 Oxygen Delivery Method Venturi Mask Venturi Mask Venturi Mask Oxygen Flow Rate (L/min) 8 8 8 Fraction of Inspired Oxygen (FIO2) 02/20/22 21:07 02/20/22 20:38 02/20/22 20:38 Temperature 98.4 F Temperature Source Temporal Pulse Rate 111 H 119 H Respiratory Rate 11 L 20 H 24 H Respiratory Effort Normal Non-Labored Short of Breath Respiratory Depth Shallow Respiratory Pattern Normal Tachypnea Blood Pressure 124/77 H Blood Pressure Mean 92 Pulse Ox 96 93 Oxygen Delivery Method Room Air Venturi Mask Oxygen Flow Rate (L/min) 8 Fraction of Inspired Oxygen (FIO2) 40 02/20/22 21:22 Temperature Temperature Source Pulse Rate Respiratory Rate Respiratory Effort Respiratory Depth Respiratory Pattern Blood Pressure Blood Pressure Mean Pulse Ox 92 Oxygen Delivery Method Room Air Oxygen Flow Rate (L/min) Fraction of Inspired Oxygen (FIO2) Weight Weight: 175 lb Body Mass Index (BMI) 24.4 Physical Exam Const alert, oriented x3 and no apparent distress HEENT normocephalic, head/scalp atraumatic and hearing grossly normal bilaterally Mouth: oral and palatal mucosa normal Eyes PERRL, EOMs intact bilaterally and conjunctivae normal Neck no lymphadenopathy, supple and no JVD Resp Resp Narrative: mildly diminished breath sounds bibasally, no wheezes or crackles. On 2L of oxygen by nasal canula Cardio regular rate, regular rhythm, S1 normal heart sound, S2 normal heart sound and no murmurs GI normal to inspection, nondistended, normoactive bowel sounds, soft to palpation and non-tender Extremity normal to inspection, full ROM and no clubbing, cyanosis or edema Neuro oriented x3, CN's II-XII intact bilaterally, moves all extremities and no focal motor deficits Sensorium / Orientation: awake and alert Motor Exam: strength 5/5 throughout Psych affect normal Results Lab / Micro Data Result Diagrams: 02/20/22 20:25 02/20/22 20:25 Labs: Laboratory Results - last 24 hr 02/20/22 20:25: WBC 6.1, RBC 5.21, Hgb 16.5, Hct 49.1, MCV 94.2 H, MCH 31.7, MCHC 33.6, RDW Std Deviation 47.8 H, RDW Coeff of [place] 13.7, Plt Count 208, MPV 9.6, Immature Gran % (Auto) 0.500, Neut % (Auto) 71.1 H, Lymph % (Auto) 20.7, Lane % (Auto) 3.8, Eos % (Auto) 3.6, Baso % (Auto) 0.3, Absolute Neuts (auto) 4.4, Absolute Lymphs (auto) 1.27, Nucleated RBC % 0 02/20/22 20:25: Sodium 140, Potassium 4.3, Chloride 109 H, Carbon Dioxide 27.0, Anion Gap 4 L, BUN 26 H, Creatinine 1.36 H, Estim Creat Clear Calc 62.29, Est GFR (MDRD) Af Amer 69, Est GFR (MDRD) Non-Af 57 L, BUN/Creatinine Ratio 19.1, Glucose 211 H, Calcium 8.8, Total Bilirubin 0.20, AST 21, ALT 30, Alkaline Phosphatase 57, Troponin I High Sens < 3 L, Total Protein 6.5, Albumin 3.4, Globulin 3.1, Albumin/Globulin Ratio 1.1 Micro: Microbiology 02/20/22 20:25 Nasal Secretion SARS-CoV-2 & FLU Antigen (Rapid) - Final Radiology Impression Chest X-Ray 02/20/22 21:09 IMPRESSION: Bibasilar infiltrates. Electronically Signed: Bernard Esquivel, DO at 21:29 EST Reading Location ID and State: [address] [place] [address] Tel [phone], Service support , Assessment & Plan Assessment/Plan (1) Shortness of breath: (2) Pneumonia: (3) Asthma exacerbation: PLAN: Plan #Hypoxia due to acute exacerbation of asthma and community acquired pneumonia * admit to med surg with telemetry * says shortness of breath had been going on for ~ 2 weeks, and had gradually worsened. * had associated wheezing and cough which was productive of clear sputum * CXR showed bibasilar infiltrates * hasnt had covid or influenza shots * covid and influenza screen negative * start on IV solumedrol 40mg q8 * IV levaquin * breathing treatment with bronchodilators * titrate oxygen to maintain sats >90% * he did receive IV magnesium sulfate in hte ED * on advair. inhaler * #Community acquired pneumonia: as above DVT prophylaxis; lovenox Code status: full code * Patient counseled extensively about different types of CODE STATUS including full code, DNR CCA and DNR CCA. Patient elects to be full code. * Total [id number] time 16 minutes. Charges/Coding Visit Charges Inpatient E&M: 44962 Init Hosp L3 Procedures Hospitalists Procedures: 13948 Advncd Care Plan 30 Min
[2022-02-20] MEDS: Ceftriaxone 1 GM/50 ML BAG IV (22:15)
[2022-02-21] VITALS (7 sets, daily range): BP systolic 112–117; BP diastolic 55–73; PULSE 79–106; RESP 16–20; TEMP 36.8–37.1; O2SAT 93–98
[2022-02-21] MEDS: 0.9% Normal Saline 1,000 ML 125 ML IV ×2 (00:07→08:21)
[2022-02-21 07:18] LABS: Absolute Lymphocyte Count 0.53 X10^3/uL (0.83-4.51); Absolute Neutrophil Count 6.3 X10^3/uL (2.0-7.7); Hematocrit 46.3 % (40-54); Hemoglobin 15.8 g/dL (13.0-16.5); Lymphocyte # 0.53 X10^3/ul (0.83-4.51); Lymphocyte % 7.7 % (19-41); Mean Corp Hgb Conc 34.1 g/dL (32-36); Mean Corpuscular Hgb 31.5 pg (27.0-32.0); Mean Corpuscular Volume 92.4 fL (80-94); Mean Platelet Vol. 9.6 fl (6.2-12.0); Monocyte# 0.05 X10^3/uL; Monocyte% 0.7 % (0-10); NRBC Flagged by Analyzer 0 % (0-5); Neutrophil # 6.26 X10^3/uL (2.7-7.7); Neutrophil % 91.2 % (47-70); POSITIVE DIFFERENTIAL YES; Platelet Count 181 K/mm3 (150-450); RBC Distribution Width CV 13.9 % (11.6-14.6); RBC Distribution Width SD 47.5 fl (35.1-43.9); Red Blood Count 5.01 M/mm3 (4.6-6.2); White Blood Count 6.9 K/mm3 (4.4-11.0)
[2022-02-21 07:23] LABS: Differential Indicated SCAN CRITERIA MET
[2022-02-21 07:44] LABS: Anion Gap 8 (5-15); BUN 20 mg/dL (7-18); BUN/Creat Ratio 19.4 RATIO (10-20); Calcium,Total 8.4 mg/dL (8.5-10.1); Chloride 112 mmol/L (98-107); Creatinine, Serum 1.03 mg/dL (0.70-1.30); EST Glomerular Filtration Rate 78 mL/min (>60); Est Glom Filt Rate - Afr Amer 95 mL/min (>60); Estimated Creatinine Clearance 82.25 ml/min; Glucose 163 mg/dL (74-106); Potassium 4.4 mmol/L (3.5-5.1); Sodium Level 141 mmol/L (136-145)
[2022-02-21] MEDS: Ipratropium/Albuterol Sulfate 3 ML AMPUL.NEB INHALATION ×3 (08:03→14:43)
[2022-02-21] MEDS: Budesonide Respules 0.5 MG/2 ML AMPUL.NEB. INHALATION (08:04)
--- NOTE | 2022-02-21 10:07 | DCINST_ITS ---
Discharge Instructions Diet Discharge Diet: 2000 mg Sodium Diet Activity Discharge Activity: Return to Normal Activity Weight Bearing Status: Weight bearing as tolerated Dressing / Incision Call your doctor if you observe: Fever of 101 or Higher, Coldness, Increased Pain, Numbness or Tingling, Change in Color, Inability to urinate, Inability to have a bowel movement, Shortness of breath, Dizziness, Fainting spells, Swelling in the ankles, Chest pain, Prolonged hiccupping, Increased palpitations (irregular heartbeat) and Calf discomfort Follow Up Care When: IN 2 WEEKS Test Results: Test results from this visit will be discussed in further detail at your follow- up appointment, if applicable. Discharge Plan Admission Admit Date/Time: 02/20/22 21:43 Primary Reason for Your Visit: Mild asthma exacerbation Attending Provider: Rashaun Denny Primary Care Provider: Franco Beltrán Consulting Providers: Jasmine Harrison Instructions Additional Instructions / Restrictions: Continue incentive spirometry and Pep for 7 days. Discharge Orders/Prescriptions Prescriptions: New Mucus Relief ER 1,200 mg Tablet Extended Release 12hr 1,200 mg PO BID 7 Days Qty: 14 0RF prednisone 10 mg tablets,dose pack See Taper PO DAILY Qty: 30 0RF Taper: Prednisone Taper 40 mg WITH BREAKFAST for 3 Days and 0 Hour 30 mg WITH BREAKFAST for 3 Days and 0 Hour 20 mg WITH BREAKFAST for 3 Days and 0 Hour 10 mg WITH BREAKFAST for 3 Days and 0 Hour Rx Instructions: 40 mg with breakfast for 3 Days; 30 mg with breakfast for 3 Days; 20 mg with breakfast for 3 Days; 10 mg with breakfast for 3 Days levofloxacin 500 mg tablet 500 mg PO DAILY Qty: 5 0RF Continued albuterol sulfate [ProAir HFA] 90 mcg/actuation HFA aerosol inhaler 2 puff INHALATION Q4H PRN (Reason: shortness of breath or wheezing) Qty: 1 6RF fluticasone propion-salmeterol [Advair Diskus] 500-50 mcg/dose blister with device 1 inh INHALATION PRN PRN (Reason: SOB) Referrals / Follow Up: Franco Beltrán MD [Primary Care Provider] - Rommel Patton DO [Med Staff - Active Staff] - Within 1 Week (Patient has follow- up with Dr. Patton on 02/24/2021. Encouraged to keep that appointment.) Disposition Disposition (needs filled in before D/C Order can be placed): Home, Self Care
[2022-02-21] MEDS: levoFLOXacin IV 750 MG/150 ML BAG 100 MG IV (10:11)
[2022-02-21] MEDS: Enoxaparin 40 MG/0.4 ML Syringe SC (10:20)
[2022-02-21] MEDS: guaiFENesin 1,200 MG Tablet 1200 MG PO (10:20)
--- NOTE | 2022-02-21 11:59 | PN.HOSP_ITS ---
Subjective Subjective Follow-up for asthma exacerbation. Diagnosed asthma a year ago Objective Data Objective Data Vital Signs: Vital Signs Temp Pulse Resp BP Pulse Ox O2 Del Method O2 Flow Rate 98.4 F 80 18 112/73 94 Room Air 2 02/21/22 06:00 02/21/22 11:14 02/21/22 11:14 02/21/22 06:00 02/21/22 11:14 02/21/22 11:14 02/21/22 00:00 FiO2 40 02/20/22 20:38 Oxygen Flow Rate (L/min) 2 Oxygen Delivery Method Room Air Weight: 180 lb 12.817 oz Body Mass Index (BMI) 25.2 Intake & Output: Intake and Output for Last 24 Hours 02/19/22 02/20/22 02/21/22 23:59 23:59 23:59 Intake Total 154 / 154 1255 / 1255 Balance 154 / 154 1255 / 1255 Lab / Micro Data Result Diagrams: 02/21/22 06:30 02/21/22 06:30 Labs: Laboratory Results - last 24 hr 02/20/22 20:25: WBC 6.1, RBC 5.21, Hgb 16.5, Hct 49.1, MCV 94.2 H, MCH 31.7, MCHC 33.6, RDW Std Deviation 47.8 H, RDW Coeff of Grayson 13.7, Plt Count 208, MPV 9.6, Immature Gran % (Auto) 0.500, Neut % (Auto) 71.1 H, Lymph % (Auto) 20.7, Tift % (Auto) 3.8, Eos % (Auto) 3.6, Baso % (Auto) 0.3, Absolute Neuts (auto) 4.4, Absolute Lymphs (auto) 1.27, Nucleated RBC % 0 02/20/22 20:25: Sodium 140, Potassium 4.3, Chloride 109 H, Carbon Dioxide 27.0, Anion Gap 4 L, BUN 26 H, Creatinine 1.36 H, Estim Creat Clear Calc 62.29, Est GFR (MDRD) Af Amer 69, Est GFR (MDRD) Non-Af 57 L, BUN/Creatinine Ratio 19.1, Glucose 211 H, Calcium 8.8, Total Bilirubin 0.20, AST 21, ALT 30, Alkaline Phosphatase 57, Troponin I High Sens < 3 L, Total Protein 6.5, Albumin 3.4, Globulin 3.1, Albumin/Globulin Ratio 1.1 02/21/22 06:30: WBC 6.9, RBC 5.01, Hgb 15.8, Hct 46.3, MCV 92.4, MCH 31.5, MCHC 34.1, RDW Std Deviation 47.5 H, RDW Coeff of Grayson 13.9, Plt Count 181, MPV 9.6, I mmature Gran % (Auto) 0.400, Neut % (Auto) 91.2 H, Lymph % (Auto) 7.7 L, Tift % (Auto) 0.7, Eos % (Auto) 0.0, Baso % (Auto) 0.0, Absolute Neuts (auto) 6.3, Absolute Lymphs (auto) 0.53 L, Nucleated RBC % 0 02/21/22 06:30: Sodium 141, Potassium 4.4, Chloride 112 H, Carbon Dioxide 21.0, Anion Gap 8, BUN 20 H, Creatinine 1.03, Estim Creat Clear Calc 82.25, Est GFR (MDRD) Af Amer 95, Est GFR (MDRD) Non-Af 78, BUN/Creatinine Ratio 19.4, Glucose 163 H, Calcium 8.4 L Micro: Microbiology 02/20/22 20:25 Nasal Secretion SARS-CoV-2 & FLU Antigen (Rapid) - Final Radiography Diagnostic Testing: Radiology Impression Chest X-Ray 02/20/22 21:09 IMPRESSION: Bibasilar infiltrates. Electronically Signed: Bernard Esquivel DO at 21:29 EST Reading Location ID and State: [address] [place] [address] Tel [phone], Service support , Physical Exam Narrative Patient has history of asthma, Follows Dr. Patton,last asthma exacerbation about 2 months ago. No fever or chills. Productive cough of clear sputum and mild pleuritic chest pain. No palpitation dizziness, nausea vomiting or diarrhea patient denies associated Assessment & Plan Assessment/Plan (1) Shortness of breath: (2) Pneumonia: (3) Asthma exacerbation: PLAN: Plan #Hypoxia due to acute exacerbation of asthma and community acquired pneumonia * admit to med surg with telemetry * says shortness of breath had been going on for ~ 2 weeks, and had gradually worsened. * had associated wheezing and cough which was productive of clear sputum * CXR showed bibasilar infiltrates * hasnt had covid or influenza shots * covid and influenza screen negative * start on IV solumedrol 40mg q8 * IV levaquin * breathing treatment with bronchodilators * titrate oxygen to maintain sats >90% * he did receive IV magnesium sulfate in e ED * on advair. inhaler * #Community acquired pneumonia: as above DVT prophylaxis; lovenox Code status: full code * Patient counseled extensively about different types of CODE STATUS including full code, DNR CCA and DNR CCA. Patient elects to be full code. * Total [id number] time 16 minutes.
--- NOTE | 2022-02-21 12:32 | CASEMGMT ---
RN SKIP Assessment: Face to Face with pt for initial transition planning/care coordination assessment. RN CM introduced self and role at [facility], pt voices understanding and consents to assessment. Pt sitting up in bed in no distress on RA. Pt is A/O x4 and answers all questions appropriately at this time. Care providers, pharmacy, and demographics verified/updated. Admitting Dx: pna, asthma exac PCP:Jerel Specialists:[facility]; jenniffer Patton Preferred Pharmacy: [facility] Insurance: [facility] [employer] Prescription Benefit: yes LNOK: Jenn Rodriguez, Living Arrangements: Pt lives with in a single story home with 2 steps to enter. Pt reports he is I in ADL's and denies concerns at home. Transportation: Pt drives self and denies concerns with transportation. DME/HHC/SNF: Pt denies having any DME in the home, previous HHC or SNF stays. Pt states no concerns with going home at time of dc. Pt states no further concerns/needs. CM to follow. Advised pt to ask CM if any further question/concerns/needs arise, voices understanding. Pt Goal: Home Plan: Home
--- NOTE | 2022-02-21 15:15 | DS.PCM_ITS ---
Providers Date of Admission: 02/20/22 Date of Discharge: 02/21/22 Primary Care Physician: Dr. Franco Beltrán MD Reason For Visit: PNEUMONIA, ASTHMA EXACERBATION Diagnosis Discharge Diagnosis (1) Shortness of breath: Status: Acute Code(s): R06.02 - Shortness of breath (2) Pneumonia: Status: Acute Code(s): J18.9 - Pneumonia, unspecified organism (3) Asthma exacerbation: Status: Acute Code(s): J45.901 - Unspecified asthma with (acute) exacerbation Plan This 61-year-old gentleman with history of asthma diagnosis few years ago was admitted with shortness of breath, increased cough with clearish sputum and pleuritic chest pain for 2 weeks but had worsening last few days. He had last asthma exacerbation 2 months ago. #Hypoxia due to acute exacerbation of asthma and community acquired pneumonia * Was admitted to [facility] with telemetry . Chest x-ray image reviewed shows bilateral perihilar interstitial markings more increased on the lung bases. Most likely interstitial pneumonia. He had 1 dose of IV ceftriaxone and Zi thromax in ED. * CXR showed bibasilar infiltrates * hasnt had covid or influenza shots * covid and influenza screen negative * start on IV solumedrol 40mg q8 * IV levaquin * breathing treatment with bronchodilators * titrate oxygen to maintain sats >90% * he did receive IV magnesium sulfate in [facility] ED * on advair. inhaler * Mild hypoxia resolved. Pulse ox 93% on room air. Patient was discharged home on Levaquin for 5 more days to complete a total of 7 days of antibiotic. 2. Bilateral interstitial perihilar and lower lobes community acquired pneumonia: as mentioned above DVT prophylaxis; lovenox Discharge medication reconciliation done. Discharge follow-up instructions completed. Discharge process discussed with the patient and all questions were answered to patient's satisfaction. Patient has appoint with Dr. Patton on 02/24/2022 and advised to follow-up with him. Total time spent, exact 35 minutes on discharge meds reconciliation, examination, coordination of care with nurses and ancillary staff, review of imaging and blood test and discussion with the patient on follow-up instruction s. Medications at Discharge Home Medications albuterol sulfate 90 mcg/actuation aerosol inhaler (ProAir HFA) 2 puff inhalation Q4H PRN shortness of breath or wheezing #1 device 02/26/21 fluticasone 500 mcg-salmeterol 50 mcg/dose blistr powdr for inhalation (Advair Diskus) 1 inh inhalation PRN PRN SOB 12/24/21 guaifenesin 1,200 mg tablet, extended release 12 hr (Mucus Relief ER) 1,200 mg PO BID 7 days #14 tabs 02/21/22 levofloxacin 500 mg tablet 500 mg PO DAILY #5 tabs 02/21/22 prednisone 10 mg tablets in a dose pack See Taper PO DAILY #30 tabs 02/21/22 Physical Exam Narrative Seen and examined on the day of discharge. Patient has history of asthma, Follows Dr. Patton,last asthma exacerbation about 2 months ago.? No fever or chills.? Productive cough of clear sputum and mild pleuritic chest pain.? No palpitation dizziness, nausea vomiting or diarrhea General: Alert, Oriented x3, Cooperative HEENT: Atraumatic, PERRLA, EOMI, Normocephalic Oral: No Gingival or Mucosal Lesions/ Ulcerations Neck: Supple, No JVD, Negative Carotid Bruits Lungs: Air entry equal in bilateral lungs. Minimal bilateral expiratory wheezing. No shortness of breath/dyspnea at rest or tachypnea or hypoxia. Cardiovascular: Regular rate, Regular Rhythm, Normal S1, Normal S2, No murmurs Abdomen: Bowel Sounds Present, Soft, Non Tender, Non-Distended : No renal angle tenderness. No suprapubic tenderness. Extremities: No edema, Capillary Refill Less than 3 Seconds Skin: No rashes, No breakdown Musculoskeletal: No Tenderness to Palpation of Joints or Extremities Neurological: Cranial nerves II-XII grossly intact, DTR 2+/4 and Symmetrical, Neuro grossly intact Psych/Mental Status: Normal Affect, Appropriate. Weight / BMI Weight Weight: 180 lb 12.817 oz Body Mass Index (BMI) 25.2 ABG / Lab / Microbiology Data Result Diagrams: 02/21/22 06:30 02/21/22 06:30 Laboratory: Laboratory Results - last 24 hr 02/20/22 20:25: WBC 6.1, RBC 5.21, Hgb 16.5, Hct 49.1, MCV 94.2 H, MCH 31.7, MCHC 33.6, RDW Std Deviation 47.8 H, RDW Coeff of Grayson 13.7, Plt Count 208, MPV 9.6, Immature Gran % (Auto) 0.500, Neut % (Auto) 71.1 H, Lymph % (Auto) 20.7, Leake % (Auto) 3.8, Eos % (Auto) 3.6, Baso % (Auto) 0.3, Absolute Neuts (auto) 4.4, Absolute Lymphs (auto) 1.27, Nucleated RBC % 0 02/20/22 20:25: Sodium 140, Potassium 4.3, Chloride 109 H, Carbon Dioxide 27.0, Anion Gap 4 L, BUN 26 H, Creatinine 1.36 H, Estim Creat Clear Calc 62.29, Est GFR (MDRD) Af Amer 69, Est GFR (MDRD) Non-Af 57 L, BUN/Creatinine Ratio 19.1, Glucose 211 H, Calcium 8.8, Total Bilirubin 0.20, AST 21, ALT 30, Alkaline Phosphatase 57, Troponin I High Sens < 3 L, Total Protein 6.5, Albumin 3.4, Globulin 3.1, Albumin/Globulin Ratio 1.1 02/21/22 06:30: WBC 6.9, RBC 5.01, Hgb 15.8, Hct 46.3, MCV 92.4, MCH 31.5, MCHC 34.1, RDW Std Deviation 47.5 H, RDW Coeff of Grayson 13.9, Plt Count 181, MPV 9.6, Immature Gran % (Auto) 0.400, Neut % (Auto) 91.2 H, Lymph % (Auto) 7.7 L, Leake % (Auto) 0.7, Eos % (Auto) 0.0, Baso % (Auto) 0.0, Absolute Neuts (auto) 6.3, Absolute Lymphs (auto) 0.53 L, Nucleated RBC % 0 02/21/22 06:30: Sodium 141, Potassium 4.4, Chloride 112 H, Carbon Dioxide 21.0, Anion Gap 8, BUN 20 H, Creatinine 1.03, Estim Creat Clear Calc 82.25, Est GFR (MDRD) Af Amer 95, Est GFR (MDRD) Non-Af 78, BUN/Creatinine Ratio 19.4, Glucose 163 H, Calcium 8.4 L Microbiology: Microbiology 02/20/22 20:25 Nasal Secretion SARS-CoV-2 & FLU Antigen (Rapid) - Final Radiography Diagnostic Testing: Radiology Impression Chest X-Ray 02/20/22 21:09 IMPRESSION: Bibasilar infiltrates. Electronically Signed: Bernard Esquivel DO at 21:29 EST Reading Location ID and State: [address] [place] [address] Tel [phone], Service support , D/C Instructions Discharge Diet: 2000 mg Sodium Diet Weight Bearing Status: Weight bearing as tolerated Call your doctor if you observe: Fever of 101 or Higher, Coldness, Increased Pain, Numbness or Tingling, Change in Color, Inability to urinate, Inability to have a bowel movement, Shortness of breath, Dizziness, Fainting spells, Swelling in the ankles, Chest pain, Prolonged hiccupping, Increased palpitations (irregular heartbeat) and Calf discomfort When: IN 2 WEEKS Meaningful Use Info Meaningful Use Diagnoses (Choose all that apply): None applicable Discharge Plan Admission Admit Date/Time: 02/20/22 21:43 Primary Reason for Your Visit: Mild asthma exacerbation Attending Provider: Rashaun Denny Primary Care Provider: Franco Beltrán Consulting Providers: Jasmine Harrison Instructions Additional Instructions / Restrictions: Continue incentive spirometry and Pep for 7 days. Discharge Orders/Prescriptions Prescriptions: New Mucus Relief ER 1,200 mg Tablet Extended Release 12hr 1,200 mg PO BID 7 Days Qty: 14 0RF prednisone 10 mg tablets,dose pack See Taper PO DAILY Qty: 30 0RF Taper: Prednisone Taper 40 mg WITH BREAKFAST for 3 Days and 0 Hour 30 mg WITH BREAKFAST for 3 Days and 0 Hour 20 mg WITH BREAKFAST for 3 Days and 0 Hour 10 mg WITH BREAKFAST for 3 Days and 0 Hour Rx Instructions: 40 mg with breakfast for 3 Days; 30 mg with breakfast for 3 Days; 20 mg with breakfast for 3 Days; 10 mg with breakfast for 3 Days levofloxacin 500 mg tablet 500 mg PO DAILY Qty: 5 0RF Continued albuterol sulfate [ProAir HFA] 90 mcg/actuation HFA aerosol inhaler 2 puff INHALATION Q4H PRN (Reason: shortness of breath or wheezing) Qty: 1 6RF fluticasone propion-salmeterol [Advair Diskus] 500-50 mcg/dose blister with device 1 inh INHALATION PRN PRN (Reason: SOB) Referrals / Follow Up: Franco Beltrán MD [Primary Care Provider] - Rommel Patton DO [Med Staff - Active Staff] - Within 1 Week (Patient has follow- up with Dr. Patton on 02/24/2021. Encouraged to keep that appointment.) Disposition Disposition (needs filled in before D/C Order can be placed): Home, Self Care Charges/Coding Visit Charges Inpatient E&M: 68933 Disch Hosp >30min
== END 2022-02-21 17:55 | disposition home or self-care (01) | DRG 197 ==
LOC: ED 21:43 → MS3 22:02
PROVIDERS: Admitting Provider Student in an Organized Health Care Education/Training Program; Emergency Provider Emergency Medicine; PCP Family Medicine; Visit Provider Internal Medicine
DX: J84.9 Interstitial pulmonary disease, unspecified (principal); J45.901 Unspecified asthma with (acute) exacerbation; R09.02 Hypoxemia
CPT/HCPCS: 36415; 71045; 80048; 80053; 84484; 85025; 87040; 87428; 93005; 94640; 94668; 94760; 99252; 99285; J7030; J7050; A4216; G0463

== ENCOUNTER → 2022-03-27 | Outpatient (CLI) | payer OTHER, SELFPAY | END | disposition home or self-care (01) | LOC: LABSPEC 07:33 | PROVIDERS: PCP Family Medicine; Referring Provider Nurse Practitioner Acute Care; Visit Provider Nurse Practitioner Acute Care | DX: R05.9 Cough, unspecified (principal) | CPT/HCPCS: 87070; 87205 ==

== ENCOUNTER 2022-05-28 17:04 | Emergency (ER) | payer OTHER, SELFPAY ==
[2022-05-28 17:04] VITALS: BP 116/78; PULSE 124; RESP 22; TEMP 37.2; O2SAT 90; BMI 24.1
--- NOTE | 2022-05-28 18:16 | EKG12_ITS ---
Test Reason : DYSRHYTHMIA Blood Pressure : / mmHG Vent. Rate : 109 BPM Atrial Rate : 109 BPM P-R Int : 120 ms QRS Dur : 078 ms QT Int : 334 ms P-R-T Axes : 070 -54 033 degrees QTc Int : 449 ms Sinus tachycardia Left axis deviation Abnormal ECG Confirmed by SHARAN ACEVES, LIZET ([id number]), industrial editor YOVANI HUMPHRIES ([id number]) on 05/30/2022 2:23:30 PM Referred By: MELANIE Confirmed By:LIZET TSANG MD
--- NOTE | 2022-05-28 18:18 | EDS_ITS ---
HPI History of Present Illness Chief Complaint: Shortness of Breath Informant: patient Onset/Context/Timing Onset: Today Narrative Narrative: Patient is a 61 year old male with history history of severe persistent asthma presenting with shortness of breath. Patient states he started to feel short of breath today around 1 PM. 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 He then started having worsening coughing, runny nose/blowing his nose and then chest tightness. He tried using his Advair inhaler x1 as well as his albuterol rescue inhaler x5 with no relief of his symptoms. He notes he saw his field operations supervisor, Dr. Patton, last week. He was told at that time his lungs are clear. He was informed that he been using his Advair inhaler once a day instead of twice a day and has started going up to twice a day since. Has been hospitalized for his breathing/pneumonia in the past. States this does feel different than his pneumonia. Has no other complaints at this time. Denies any fever, GI or symptoms. PFSH PFSH Medical History Asthma History of nasal polyp ICH (intracerebral hemorrhage) Non-smoker Home Medications albuterol sulfate 90 mcg/actuation aerosol inhaler (ProAir HFA) 2 puff inhalation Q4H PRN shortness of breath or wheezing #1 device 02/24/22 [Rx Last Taken Unknown] fluticasone 500 mcg-salmeterol 50 mcg/dose blistr powdr for inhalation (Advair Diskus) 1 inh inhalation BID #60 ea 05/21/22 [Rx Last Taken Unknown] levofloxacin 750 mg tablet 750 mg PO DAILY #9 tabs 05/28/22 [Rx Last Taken Unknown] prednisone 20 mg tablet 40 mg PO DAILY #10 tabs 05/28/22 [Rx Last Taken Unknown] Allergy/AdvReac Type Severity Reaction Status Date / Time No Known Allergies Allergy Verified 05/28/22 17:06 Family History (Updated 05/28/22 @ 20:[address] Marium Tinajero MD) Mother Hypertension Father Blood disorder Father w/ unclear blood disorder, reported to be associated with his d eath. Surgical History Hx of colonoscopy Hx of left cataract extraction Hx of right cataract extraction nasal polyp surgery Social History (Updated 05/28/22 @ 20:[address] Marium Tinajero MD) household members: spouse Smoking Status: Never smoker alcohol intake: current alcohol intake frequency: a few times a month substance use type: does not use ROS ROS ED Constitutional Constitutional ED: Denies chills or fever(s) Eyes Eyes: Denies change in vision ENT ENT ED: Reports rhinorrhea and other Details: head congestion Cardiovascular Cardiovascular: Denies chest pain Respiratory/Chest Respiratory/Chest: Reports cough and dyspnea Gastrointestinal Gastrointestinal: Denies abdominal pain, nausea or vomiting Musculoskeletal Musculoskeletal: Denies arthralgias or myalgias Integumentary Denies rash Neurologic Neurologic: Reports headache(s); Denies paresthesias or weakness Psychiatric Psychiatric: Denies anxiety EXAM Physical Exam Const Vital Signs: 05/28/22 17:04 05/28/22 18:24 05/28/22 18:50 Temperature 99 F Temperature Source Temporal Pulse Rate 124 H 113 H Respiratory Rate 22 H 18 Respiratory Effort Short of Breath Respiratory Depth Normal Respiratory Pattern Normal Normal Blood Pressure 116/78 Blood Pressure Mean 90 Pulse Ox 90 Oxygen Delivery Method Room Air Room Air 05/28/22 19:28 05/28/22 21:16 05/28/22 22:31 Temperature Temperature Source Pulse Rate 113 H 110 H 101 H Respiratory Rate 18 14 17 Respiratory Effort Respiratory Depth Respiratory Pattern Blood Pressure 118/73 119/67 109/74 Blood Pressure Mean 88 84 Pulse Ox 92 95 95 Oxygen Delivery Method Room Air Room Air Positive well nourished and well developed General Appearance ED: well developed and NAD HEENT Reports TM's clear and moist mucous membranes HEENT Narrative: Mild injection of the left tympanic membrane atraumatic Tympanic Membrane ED: Yes TM's clear Eyes PERRL and EOMs intact bilaterally Neck supple, no meningeal signs and no JVD Resp clear to auscultation bilaterally Resp Narrative: Mild tachypnea. Diminished breath sounds at the bases bilaterally decreased air movement at the bases. Scattered wheezes of the right upper lung Cardio regular rhythm and no murmurs Rate: tachycardic GI non-tender and non-distended Extremity normal to inspection General Extremety ED: Negative for edema General Extremity: Negative for edema Neuro oriented x3 Sensorium / Orientation: alert Motor Exam: Negative for general weakness Psych mental status grossly normal Skin no wounds and skin turgor normal Rashes: no rashes MDM MDM MDM Narrative Medical decision making narrative: Patient is a 61-year-old male with history of asthma presenting with increased shortness of breath. Patient states its happened pretty suddenly this afternoon. He has been having a worsening intermittent cough however. He follows with pulmonology. Patient has quite diminished breath sounds at the bases bilaterally and a DuoNeb was given. He does have some improvement with this. He does require second treatment albuterol. He again has improvement but he does have a more diminished breath sounds at the right base and compared to the left. He has a leukocytosis of 13.4. He is afebrile in the emergency room. He is given IV fluids with some improvement of his tachycardia. Two-view chest x-ray obtained interpreted by myself as well as radiology. Patient has bibasilar airspace disease. Given his abnormal chest x-ray which is out of proportion for his 1 day of symptoms I did obtain a CT of the chest for further evaluation to exclude any mass. CT of the chest shows nonspecific bilateral airspace disease that is new. Case is discussed with his field operations supervisor, Dr. Patton. He will arrange for close outpatient follow-up. I they will discuss getting him a nebulizer machine from the office. He recommend starting the patient on Levaquin. Patient is given a dose of Solu-Medrol as well as Levaquin in the emergency room. Patient is ambulated and does not desaturate below 90. He is amenable to trying outpatient treatment. As he is not hypoxic or in status asthmaticus I do not think he requires admission at this time. Patient is given strict return precautions. Discharged home in stable condition. History & Record Review Additional record(s) reviewed:: Prior outpatient record Lab Data Labs: Laboratory Results - last 24 hr 05/28/22 05/28/22 18:30 18:30 WBC 13.4 H RBC 5.26 Hgb 16.6 H Hct 49.4 MCV 93.9 MCH 31.6 MCHC 33.6 RDW Std Deviation 49.1 H RDW Coeff of Grayson 14.1 Plt Count 186 MPV 9.4 Immature Gran % (Auto) 0.400 Neut % (Auto) 87.3 H Lymph % (Auto) 5.5 L Nobles % (Auto) 6.5 Eos % (Auto) 0.1 Baso % (Auto) 0.2 Absolute Neuts (auto) 11.7 H Absolute Lymphs (auto) 0.74 L Nucleated RBC % 0 Sodium 138 Potassium 4.0 Chloride 108 H Carbon Dioxide 24.0 Anion Gap 6 BUN 19 H Creatinine 1.23 Estim Creat Clear Calc 68.87 Est GFR (MDRD) Af Amer 77 Est GFR (MDRD) Non-Af 64 BUN/Creatinine Ratio 15.4 Glucose 116 H Calcium 8.9 Radiography Chest X-Ray - ED: 2 View, Read by ED Physician, Read by Radiologist and - (Bibasilar disease) Diagnostic Testing: Clinical Impression(s) from Imaging Studies Chest X-Ray 05/28/22 18:43 IMPRESSION: Increased bibasilar airspace disease Electronically Signed: Rahul Ojeda MD at 20:12 EDT Reading Location ID and State: [address] [place] [address] , Service support , Chest CT 05/28/22 20:31 IMPRESSION: New Nonspecific bilateral airspace disease Electronically Signed: Rahul Ojeda MD at 21:34 EDT Reading Location ID and State: [facility] / [place] , Service support , Rhythm Strip Rhythm Strip: Sinus Tach Rate: 109 Ectopy: None EKG Initial EKG: Attestation: I personally reviewed and interpreted this EKG as follows: Interpretation: Sinus Tachycardia Comments: Sinus tachycardia at a rate of 109 bpm Left axis deviation Normal intervals Normal ST segments Management Discussion w/another healthcare provider: Car [employer]ator Discharge Plan Triage Chief Complaint: Shortness of Breath ED Provider: Sadia Buchanan Dx/Rx/DC Orders Clinical Impression: Asthma exacerbation, Interstitial pulmonary disease, unspecified Instructions: Interstitial Lung Disease, ED Asthma, Acute (Adult) Prescriptions: New prednisone 20 mg tablet 40 mg PO DAILY Qty: 10 0RF levofloxacin 750 mg tablet 750 mg PO DAILY Qty: 9 0RF No Action albuterol sulfate [ProAir HFA] 90 mcg/actuation HFA aerosol inhaler 2 puff INHALATION Q4H PRN (Reason: shortness of breath or wheezing) Qty: 1 6RF fluticasone propion-salmeterol [Advair Diskus] 500-50 mcg/dose blister with device 1 inh inhalation BID Qty: 60 11RF Primary Care Provider: Franco Beltrán Referrals: Franco Beltrán MD [Primary Care Provider] - Rommel Patton DO [Med Staff - Active Staff] - As soon as possible Activity Restrictions/Additional Instructions: If you have worsening respiratory symptoms please return to the emergency room. Use spacer with your albuterol inhaler. Take 1 to 2 puffs every 4 hours as needed for shortness of breath. Please follow-up closely with your field operations supervisor. Disposition Disposition: Home, Self Care Discharge Date/Time: 05/28/22 22:40
[2022-05-28 18:24] VITALS: PULSE 113; RESP 18
[2022-05-28] MEDS: Ipratropium/Albuterol Sulfate 3 ML AMPUL.NEB INHALATION (18:24)
--- NOTE | 2022-05-28 18:43 | RAD_ITS ---
STUDY: X-RAY CHEST REASON FOR EXAM: Male, 61 years old. sob TECHNIQUE: Frontal and lateral views of the chest. COMPARISON: February 20, 2022 FINDINGS: Bibasilar airspace disease slightly increased. There is no demonstrated pleural abnormality. Normal size heart. Normal mediastinum and bernadette. Normal visualized pulmonary arteries. Normal visualized aortic arch and descending thoracic aorta. Normal visualized thoracic spine. Normal visualized ribs, clavicles, and shoulders. There is no demonstrated abnormality of the visualized soft tissue structures of the upper abdomen. RAD/Chest PA and Lateral IMPRESSION: Increased bibasilar airspace disease Electronically Signed: Rahul Ojeda MD at 20:12 EDT ,
[2022-05-28 18:47] LABS: Absolute Lymphocyte Count 0.74 X10^3/uL (0.83-4.51); Absolute Neutrophil Count 11.7 X10^3/uL (2.0-7.7); Basophil# 0.03 X10^3/uL; Basophil% 0.2 % (0-1); Eosinophil# 0.02 X10^3/uL; Eosinophils% 0.1 % (0-5); Hematocrit 49.4 % (40-54); Hemoglobin 16.6 g/dL (13.0-16.5); Lymphocyte # 0.74 X10^3/ul (0.83-4.51); Lymphocyte % 5.5 % (19-41); Mean Corp Hgb Conc 33.6 g/dL (32-36); Mean Corpuscular Hgb 31.6 pg (27.0-32.0); Mean Corpuscular Volume 93.9 fL (80-94); Mean Platelet Vol. 9.4 fl (6.2-12.0); Monocyte# 0.87 X10^3/uL; Monocyte% 6.5 % (0-10); NRBC Flagged by Analyzer 0 % (0-5); Neutrophil # 11.69 X10^3/uL (2.7-7.7); Neutrophil % 87.3 % (47-70); Platelet Count 186 K/mm3 (150-450); RBC Distribution Width CV 14.1 % (11.6-14.6); RBC Distribution Width SD 49.1 fl (35.1-43.9); Red Blood Count 5.26 M/mm3 (4.6-6.2); White Blood Count 13.4 K/mm3 (4.4-11.0)
[2022-05-28 19:03] LABS: Anion Gap 6 (5-15); BUN 19 mg/dL (7-18); BUN/Creat Ratio 15.4 RATIO (10-20); Calcium,Total 8.9 mg/dL (8.5-10.1); Chloride 108 mmol/L (98-107); Creatinine, Serum 1.23 mg/dL (0.70-1.30); EST Glomerular Filtration Rate 64 mL/min (>60); Est Glom Filt Rate - Afr Amer 77 mL/min (>60); Estimated Creatinine Clearance 68.87 ml/min; Glucose 116 mg/dL (74-106); Sodium Level 138 mmol/L (136-145)
[2022-05-28] MEDS: MethylPREDNISolone 125 MG/2 ML Vial IV (19:05)
[2022-05-28] MEDS: 0.9% Normal Saline 1,000 ML 999 ML IV (19:05)
[2022-05-28 19:28] VITALS: BP 118/73; PULSE 113; RESP 18; O2SAT 92
--- NOTE | 2022-05-28 20:31 | CT_ITS ---
INDICATION: sob, abnormal CXR EXAMINATION: CT CHEST WITHOUT CONTRAST - CT Chest W/O Contrast Injection TECHNIQUE: Helically acquired images were obtained of the chest. A radiation dose optimization technique was used for this scan. IV Contrast dosage and agent: None. COMPARISON: Chest x-ray from today. CT chest from June 10, 2019.. FINDINGS: LUNGS, PLEURA AND LARGE AIRWAYS: Bibasilar nonspecific airspace disease. No pleural effusion or thickening. No pneumothorax. THYROID: No thyroid lesions. HEART AND PERICARDIUM: Heart size is normal. No pericardial effusion. CORONARY ARTERIES: Coronary artery calcification VESSELS: Thoracic aorta is not dilated. MEDIASTINUM AND STEFF: No mediastinal or hilar adenopathy. Esophagus is unremarkable. No hiatal hernia. UPPER ABDOMEN: Hepatic cyst. BONES: No suspicious lytic or blastic abnormality. CT/Chest without Contrast IMPRESSION: New Nonspecific bilateral airspace disease Electronically Signed: Rahul Ojeda MD at 21:34 EDT ,
[2022-05-28] MEDS: Albuterol 2.5 MG/3 ML VIAL.NEB. INHALATION (20:34)
--- NOTE | 2022-05-28 20:50 | CPS ---
[2034] x1 Albuterol given to pt. Pre-HR = 119, RR = 20 with clear & diminished breath sounds. Post-HR = 113, RR = 18 with clearer breath sounds through out. Pt. claims his breathing improves after tx.'s.
[2022-05-28 21:16] VITALS: BP 119/67; PULSE 110; RESP 14; O2SAT 93; O2SAT 95
[2022-05-28] MEDS: levoFLOXacin 750 MG Tablet PO (22:30)
[2022-05-28 22:31] VITALS: BP 109/74; PULSE 101; RESP 17; O2SAT 95
== END 2022-05-28 22:40 | disposition home or self-care (01) ==
PROVIDERS: Emergency Provider Emergency Medicine; PCP Family Medicine; Visit Provider Emergency Medicine
DX: J45.901 Unspecified asthma with (acute) exacerbation (principal); J84.9 Interstitial pulmonary disease, unspecified
CPT/HCPCS: 71046; 71250; 80048; 85025; 87428; 93005; 94640; 96374; 99285; J7030

== ENCOUNTER → 2022-07-04 | Outpatient (CLI) | payer OTHER, SELFPAY ==
--- NOTE | 2022-07-04 07:15 | RAD_ITS ---
INDICATION: f/u Pneumonia EXAMINATION/TECHNIQUE: X-RAY - XR Chest 2 Views COMPARISON: Two-view chest x-ray from 05/28/2022 FINDINGS: LINES/DEVICES: None. LUNGS: Hyperexpanded lungs again noted. Mild residual bibasilar opacities. No sizable pleural effusion. No pneumothorax detected. MEDIASTINUM AND CARDIOVASCULAR STRUCTURES: Heart size within normal limits. Mediastinal contours unremarkable. BONES AND SOFT TISSUES: No acute findings. RAD/Chest PA and Lateral IMPRESSION: COPD with mild bibasilar atelectasis versus infiltrate Electronically Signed: Edy Pelayo MD at 22:55 EDT ,
== END | disposition home or self-care (01) ==
LOC: RAD 07:10
PROVIDERS: PCP Family Medicine; Visit Provider Internal Medicine Critical Care Medicine
DX: J45.909 Unspecified asthma, uncomplicated (principal)
CPT/HCPCS: 71046

== ENCOUNTER → 2022-07-23 | Outpatient (CLI) | payer OTHER, SELFPAY | END | disposition home or self-care (01) | PROVIDERS: PCP Family Medicine; Visit Provider Nurse Practitioner Acute Care | DX: R05.9 Cough, unspecified (principal) | CPT/HCPCS: 87070; 87205 ==